=== PATIENT | female | born 1960 | race Caucasian/White ===

== ENCOUNTER 2023-09-25 08:07 | Outpatient (CLI) | payer BC, SELFPAY | END 2023-09-25 08:08 | disposition home or self-care (01) | LOC: NFLDREF 09-26 06:09 | PROVIDERS: PCP Nurse Practitioner Family; Referring Provider Nurse Practitioner Family; Visit Provider Physician Assistant | DX: E87.6 Hypokalemia (principal) | CPT/HCPCS: 80048 ==

== ENCOUNTER 2023-10-15 13:56 | Outpatient (CLI) | payer BC, SELFPAY | END 2023-10-15 13:57 | disposition home or self-care (01) | LOC: RAD 13:57 | PROVIDERS: PCP Family Medicine; Visit Provider Physician Assistant | DX: C50.912 Malignant neoplasm of unspecified site of left female breast (principal); I35.1 Nonrheumatic aortic (valve) insufficiency; I34.0 Nonrheumatic mitral (valve) insufficiency; I07.1 Rheumatic tricuspid insufficiency; Z51.81 Encounter for therapeutic drug level monitoring; Z79.899 Other long term (current) drug therapy | CPT/HCPCS: 93306 ==

== ENCOUNTER 2023-10-18 08:05 | Outpatient (CLI) | payer BC, SELFPAY | END 2023-10-18 08:06 | disposition home or self-care (01) | LOC: NFLDREF 10-19 06:58 | PROVIDERS: PCP Family Medicine; Referring Provider Family Medicine; Visit Provider Physician Assistant | DX: E87.6 Hypokalemia (principal); D64.81 Anemia due to antineoplastic chemotherapy; T45.1X5A Adverse effect of antineoplastic and immunosuppressive drugs, initial encounter | CPT/HCPCS: 80048; 85018 ==

== ENCOUNTER 2023-12-11 06:43 | Day surgery (SDC) | payer BC, SELFPAY ==
[2023-12-11] VITALS (22 sets, daily range): BP systolic 91–108; BP diastolic 56–87; PULSE 77–94; RESP 14–20; TEMP 36.2–36.9; O2SAT 92–97; BMI 25.4
--- OUTSIDE RECORDS SUMMARY | 2023-12-11 06:47 | XMS_ITS | Clinical Summary ---
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 Healthcare Directive 07/19/2023 024 * Full Code (Latest Code Status on File) Date Activated Date Inactivated Comments 07/26/2023 12:14 PM 07/26/2023 6:01 PM Question Answer Comments Code Status Discussion: Reviewed Preferences * Full Code Date Activated Date Inactivated Comments 07/17/2023 12:26 PM 07/17/2023 7:05 PM Question Answer Comments Code Status Discussion: Reviewed Preferences * Full Code Date Activated Date Inactivated Comments 06/06/2018 8:20 AM 06/06/2018 4:00 PM Question Answer Comments Code Status Discussion: Not Discussed Care Teams Metal Cans Supervisor Relationship Specialty Start Date End Date Milena Powell NP [address] [facility] [place] [address] PCP - General Nurse Practitioner - Family 01/29/23 Iliana Dunaway RN [address] [place] [address] Nurse Navigator - Oncology Registered Nurse 06/18/23 Senait Tilley, MAKENNA [address] [facility] [address] [place] [address] Nurse Navigator - Oncology Registered Nurse 06/20/23 Arina Haley MD [address] [address] Surgery - General 06/20/23 Kalli Brandon NP [address] [place] [address] Nurse Practitioner Hematology and Oncology 07/10/23 Sowmya Etienne MD [address] [place] [address] Medical Oncologist Hematology and Oncology 07/10/23
[2023-12-11] MEDS: LACTATED RINGERS 1000 ML 1,000 ML 100 ML IV ×3 (07:15→14:30)
[2023-12-11] MEDS: SODIUM CHLORIDE 0.9 % (FLUSH) 10 ML SYRINGE IVF (07:15)
--- NOTE | 2023-12-11 08:00 | CRLHL7_ITS ---
For Patients: As a result of the Century Cures Act, medical imaging exams and procedure reports are released immediately into your electronic medical record. You may view this report before your referring provider. If you have questions, please contact your health care provider. SENTINEL LYMPH NODE LOCALIZATION INJECTION CLINICAL HISTORY: Breast cancer LATERALITY: Right breast TECHNIQUE: With the patient supine, the periareolar right breast was cleansed with alcohol. One cc of 1% lidocaine was injected intradermal in the upper outer periareolar region of the right breast with a 25-gauge needle. Next, 0.80 millicuries of technetium Tc 99m filtered sulfur colloid in a volume of 1 cc was injected intradermal in the upper outer periareolar breast with a 25-gauge needle. The patient tolerated the procedure well and there were no immediate complications. IMPRESSION: Injection for sentinel lymph node of the right breast. Dictated by Cl Davey MD @ 12/12/2023 4:30:18 PM (Electronically Signed)
--- NOTE | 2023-12-11 08:14 | W.ANESCHARGE ---
Anesthesia Charges Start Date/Time Anesthesia Start Date: 12/11/23 Anesthesia Start Time: 09:22 Stop Date/Time Anesthesia Stop Date: 12/11/23 Anesthesia Stop Time: 13:23
--- NOTE | 2023-12-11 08:14 | W.PM.NB ---
Nerve Block Nerve Block Time Seen by Provider: 09:32 Date Seen: 12/11/23 Type of block requested by surgeon for post-operative analgesia: intercostal and intercostal add on Side: bilateral Time out performed: Yes Verification of patient name: Yes Verification of date of : Yes Site marking: site marked Name of person performing procedure: Valentin Continuous monitoring Was continuous monitoring of O2 sat, B/P, property assessment monitor, recorded every 15 minutes?: Yes Procedure Checklist: sterile prep, needles and gloves Ultrasound guided. Images saved: Yes Medications given in 5ml increments after negative aspiration: Marcaine %: 0.25 mL: 30 Needle gauge: 20 and Exparel mL: 20 Needle gauge: 20 Patient tolerated procedure well: Yes Block Charges Block Charge (with Pro Fee): Intercostal Nerve Block Use of Ultrasound Machine for Block: Yes- US Guidance/pain block
--- NOTE | 2023-12-11 08:15 | CRLHL7_ITS ---
For Patients: As a result of the Cures Act, medical imaging exams and procedure reports are released immediately into your electronic medical record. You may view this report before your referring provider. If you have questions, please contact your health care provider. 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 TECHNIQUE: The localization wire was placed using real-time ultrasound guidance with image documentation. CONSENT and TIME OUT: The procedure, risks, and alternatives were explained to the patient and a consent was signed. [place] Protocol was followed including pre-procedure verification that relevant information/documentation was available, reviewed and properly matched to the patient; consent accurate and complete; and equipment and supplies available. Time Out was conducted just prior to starting procedure to verify the four required elements: patient identity, correct side/site marked (if applicable), procedure, relevant images/results properly labeled and displayed (if applicable). PROCEDURE: The skin was prepped with ChloraPrep. 6 cc of 1 percent lidocaine used for local anesthesia. The localization wire was placed within or near the targeted right axillary lymph node lesion using ultrasound guidance. The patient tolerated the procedure well. PROXIMITY OF WIRE TO LESION: The wire is located within the previously biopsied lymph node immediately adjacent to the biopsy clip. IMPRESSION: Successful right axillary lymph node wire localization. ACR not applicable Dictated by Cl Davey MD @ 12/11/2023 11:21:14 AM (Electronically Signed)
--- NOTE | 2023-12-11 09:19 | W.PM.H&PU ---
History & Physical Update History & Physical Update H&P Reviewed and patient assessed: No changes noted
[2023-12-11] MEDS: ISOSULFAN BLUE 5 ML VIAL INJECTION (09:36)
[2023-12-11] MEDS: CEFAZOLIN 2 GM INJ IVP (09:38)
--- NOTE | 2023-12-11 10:49 | CRLHL7_ITS ---
For Patients: As a result of the Cures Act, medical imaging exams and procedure reports are released immediately into your electronic medical record. You may view this report before your referring provider. If you have questions, please contact your health care provider. RIGHT BREAST SPECIMEN RADIOGRAPH CLINICAL HISTORY: RIGHT breast cancer. COMPARISON: 06/13/2023. FINDINGS: RIGHT breast specimen submitted, two views. The entire breast was included from mastectomy. Biopsy clip is present. IMPRESSION: Biopsy clip is present within the mastectomy specimen. ACR not applicable Dictated by Cl Davey MD @ 12/11/2023 11:18:07 AM jj/Dictated by: Cl Davey MD @ 12/11/2023 11:18:00 AM (Electronically Signed)
--- NOTE | 2023-12-11 11:20 | CRLHL7_ITS ---
For Patients: As a result of the Cures Act, medical imaging exams and procedure reports are released immediately into your electronic medical record. You may view this report before your referring provider. If you have questions, please contact your health care provider. RIGHT AXILLARY SPECIMEN RADIOGRAPH CLINICAL HISTORY: RIGHT axillary lymph node dissection. COMPARISON: 06/13/2023. FINDINGS: Two views of the RIGHT axillary lymph node specimen submitted. Multiple lymph nodes are present in the specimen. IMPRESSION: Multiple RIGHT axillary lymph nodes are present within the specimen. ACR not applicable Dictated by Cl Davey MD @ 12/11/2023 12:43:57 PM jj/Dictated by: Cl Davey MD @ 12/11/2023 12:43:00 PM (Electronically Signed)
--- NOTE | 2023-12-11 12:01 | CRLHL7_ITS ---
For Patients: As a result of the Cures Act, medical imaging exams and procedure reports are released immediately into your electronic medical record. You may view this report before your referring provider. If you have questions, please contact your health care provider. RIGHT AXILLARY SPECIMEN RADIOGRAPH CLINICAL HISTORY: Previously biopsied RIGHT axillary lymph node, RIGHT axillary dissection. COMPARISON: 06/13/2023. FINDINGS: Two views of the RIGHT axillary lymph node specimen submitted. The specimen contains the previously biopsy lymph node along with a biopsy clip and localization wire. IMPRESSION: Previously biopsied lymph node in the specimen is present along with the biopsy clip and localization wire. ACR not applicable Dictated by Cl Davey MD @ 12/11/2023 12:47:00 PM jj/Dictated by: Cl Davey MD @ 12/11/2023 12:47:00 PM (Electronically Signed)
--- NOTE | 2023-12-11 12:02 | CRLHL7_ITS ---
For Patients: As a result of the Cures Act, medical imaging exams and procedure reports are released immediately into your electronic medical record. You may view this report before your referring provider. If you have questions, please contact your health care provider. RIGHT AXILLARY SPECIMEN RADIOGRAPH CLINICAL HISTORY: RIGHT axillary lymph node dissection, RIGHT breast cancer. COMPARISON: 06/13/2023. FINDINGS: Two views of the RIGHT axillary lymph node specimens submitted. Multiple RIGHT axillary lymph nodes are present. IMPRESSION: Right RIGHT lymph nodes are present within the RIGHT axillary specimen. ACR not applicable Dictated by Cl Davey MD @ 12/11/2023 12:45:29 PM jj/Dictated by: Cl Davey MD @ 12/11/2023 12:45:00 PM (Electronically Signed)
--- NOTE | 2023-12-11 12:57 | P.GSOP_ITS ---
Operative Note Date of procedure: 12/11/23 Pre-op diagnosis: Invasive ductal carcinoma, right breast Post-op diagnosis: Same Type of Procedure: 1. Injection of radionucleotide tracer 2. Bilateral mastectomy 3. Right axillary sentinel lymph node 4. Wire localized right axillary lymph node removal Indications: Patient is a 62-year-old female who was diagnosed with invasive ductal carcinoma. Evidence on workup of stage III disease with metastases to the right axillary lymph nodes. She underwent neoadjuvant treatment, with evidence of t umor regression. Different treatment options were discussed, with patient deciding to pursue bilateral mastectomy and targeted right axillary lymph node dissection. We also reviewed the possible need for a complete axillary dissection in the setting of persistently positive lymph nodes. Risks and benefits were reviewed. Risks included, for not limited to: Bleeding, infection, risk to surrounding structures, risk of seroma, hematoma or lymphatic leak, risk to nerves of the axilla and lymphedema. All questions and concerns were addressed with patient agreeing to proceed. Procedure Description: Prior to going to the operating room a radionucleotide tracer was placed within a subdermal plane at the nipple-areolar complex. She then went to Radiology, where the previously biopsied right axillary lymph node was identified and localized with a wire. Please see radiology note for full procedure. The patient was brought to the operating room and prepped and draped in standard sterile fashion. A timeout was taken for patient safety. I injected 3 cc of lymphazurin blue in the patient's right breast. I then performed breast massage for a period of 5 minutes. I performed a transverse elliptical incision on the right breast around the nipple-areolar complex and started by dissecting the subcutaneous tissues using electrocautery. The breast flaps were created circumferentially, dissecting all the breast tissue off of the overlying skin superiorly up to the clavicle, medially to the lateral border of the sternum, laterally out to the latissimus and inferiorly to the inferior aspect of the breast fold. Once flaps had been raised in all 4 directions down to the level of the fascia, the breast was taken off of the chest wall. I included the fascia in my dissection. The underlying pectoralis muscle was inspected and hemostasis was appreciated. The breast was removed through the incision and marked with a short stitch superior and a long stitch lateral. It was sent to Radiology, with evidence of a clip within the specimen correlating to the biopsied cancer. It was then sent to pathology for immediate assessment, with no residual tumor identified. Margins negative. I then proceeded to take out the sentinel lymph nodes through the mastectomy incision. Using the Neoprobe I identified two sentinel lymph nodes. The nodes were carefully dissected out with blunt dissection and cautery. The lymphovascular pedicle was identified and tied with 3-0 Vicryl. The counts on the nodes were 2036. This was sent as one specimen, sentinel lymph node 1 for immediate evaluation by pathology. Some fibrotic changes were noted, but no evidence of metastatic disease. The Neoprobe was placed back into the axilla and a 3rd sentinel node was identified. This was carefully dissected out with blunt dissection and cautery. The counts were 634. This was sent to pathology for frozen evaluation, with no evidence of malignancy. The wire in the right axilla was identified and targeted towards lymphatic tissue that had not yet been removed. This was dissected out carefully with cautery. The wire went through a moderately sized lymph node. This was circumferentially dissected free. The lymphovascular pedicle was identified and ligated with 3 0 Vicryl. The specimen was removed along with the wire and sent to Radiology. Evidence on imaging of the wire and lymph node clip. This was sent to pathology for immediate evaluation with no evidence of metastatic disease, fibrotic changes present. At the conclusion of the targeted axillary dissection background counts in the axilla remained low with no further hot or blue nodes identified. I then proceeded to perform contralateral prophylactic mastectomy in the same fashion. I made a transverse elliptical incision around the nipple-areolar complex and started by dissecting the subcutaneous tissues using electrocautery. The breast flaps were created circumferentially, dissecting all the breast tissue off of the overlying skin superiorly up to the clavicle, medially to the lateral border of the sternum, laterally out to the latissimus and inferiorly to the inferior aspect of the breast fold. Once flaps had been raised in all 4 directions down to the level of the fascia, the breast was taken off of the chest wall. I included the fascia in my dissection. The breast was removed through the incision and marked with a short stitch superior and a long stitch lateral. It was sent to pathology for permanent evaluation. Hemostasis was assured in both operative sahni. Two 15 Yi Jim drains were placed on both sides of the chest and secured to the skin with 3-0 nylon suture. The elliptical incisions were closed in layers with interrupted 3-0 Vicryl stitch and running 4-0 Monocryl subcuticular stitch. Steri-Strips, 4x4s and an Yordy wrap was applied. ? The patient was then woken and transported to the recovery area in stable condition. ? The patient tolerated the procedure well. Findings: Bilateral mastectomy. Right breast with no residual tumor identified in margins negative. Targeted axillary dissection with all nodes negative for metastatic disease. Anesthesia: GETA Surgeon: Cassidy Coleman MD Estimated blood loss (mL): 25 Additional Specimen Information: 1. Right breast 2. [place] lymph node 1, right axilla 3. [place] lymph node 2, right axilla 4. Wire localized sentinel lymph node, right axilla 5. Left breast Condition: stable Disposition: PACU [place] Node Biopsy for Breast Cancer Operation Performed with Curative Intent: Yes Tracers used to Identify sentinel nodes in the upfront surgery (non-neoadjuvant) setting: N/A Tracers used to identify sentinel nodes in the neoadjuvant setting: Dye, Radioactive Tracer and Clips & wire localization All nodes (colored or non-colored) present at the end of a dye filled lymphatic channel were removed: Yes All significantly radioactive nodes were removed: Yes All palpably suspicious nodes were removed: Yes Biopsy proven positive nodes marked with clips prior to chemotherapy were identified and removed: Yes
--- NOTE | 2023-12-11 13:29 | W.ANESCHARGE ---
Anesthesia Charges Start Date/Time Anesthesia Start Date: 12/11/23 Anesthesia Start Time: 09:22 Stop Date/Time Anesthesia Stop Date: 12/11/23 Anesthesia Stop Time: 13:23
[2023-12-11] MEDS: fentaNYL 100 MCG/2 ML inj 50 MCG IVP (13:37)
--- NOTE | 2023-12-11 14:01 | SUR.PHASEI ---
patient meets pacu d/c criteria
--- NOTE | 2023-12-11 14:26 | PC.SOCIAL ---
Discharge planning- Met with patient to discuss discharge plans. Patient informs that her friend that was going to assist her in the home during recovery is now on vacation. Patient is unsure at this time what assistance she requires. Patient is agreeable to see therapy services and following recommendations including SNF, home care, or outpatient services. Social work will follow up with patient tomorrow morning to check on patient's progress and further discuss discharge plans.
[2023-12-11] MEDS: HYDROmorphone 0.5 mg/0.5 ml inj IVP (14:27)
[2023-12-11] MEDS: HYDROCODONE-ACETAMIN 5-325 MG 1 TAB PO ×3 (14:27→23:05)
--- OUTSIDE RECORDS SUMMARY | 2023-12-11 14:54 | XMS_ITS | Clinical Summary ---
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 Malignant neoplasm of upper- outer quadrant of right breast in female, estrogen receptor negative 07/02/2023 Cancer Staging:Clinical:Stage IIIA(cT2, cN2, cM0, G3, ER-, RI-, HER2+) - Signed by Arina Haley MD [...] Description 11/18/2023 3:45 PM CDT Ancillary Procedure [facility] [address] [place] [address] 11/18/2023 3:00 PM CDT Office Visit [facility] [address] [place] [address] Irasema Snatiago, SUNI Lower Back Pain 11/18/2023 Travel 10/24/2023 Refill [facility] [address] [place] [address] Milena Powell NP Refill Request (Sertraline, Lisinopril-hydrochlo rothiazide 10 Mg-12.5 Mg) 10/15/2023 2:00 PM CDT Ancillary Procedure [facility] [address] [place] [address] from Last 3 Months Immunizations Name Administration [...] 170.2 cm (5' 7) 07/26/2023 6:58 AM BRAILLE DUPLICATING MACHINE OPERATOR Body Mass Index 24.75 07/26/2023 6:58 AM BRAILLE DUPLICATING MACHINE OPERATOR Plan of Treatment Health Maintenance Due Date [...] Completed 01/29/2023 Medical Devices Implanted Type Area Form Setter Steel Pan Forms Device Identifier Shelf Expiration Date Model / Serial / Lot Power Port Isp Mri 6fr [id number] - [id number] Implanted:Qty: 1 on 07/17/2023 by Doris Aguillon DO at [facility] Left: Chest [employer] 11/08/2024 [id number] / / [id number] Procedures Procedure Name Priority Date/Time Associated Diagnosis Comments XR SPINE LUMBAR 3 VIEWS STAT 11/18/2023 3:48 PM CDT Acute right-sided low back pain with right-sided sciatica ECHO TTE COMPLETE WO CONTRAST Routine 10/15/2023 2:35 PM CDT Malignant neoplasm (HC) XR MAMMO TY BILAT DIAG JORGE 06/13/2023 10:35 AM BRAILLE DUPLICATING MACHINE OPERATOR Lump in lower outer quadrant of right [...] CDT ECHOCARDIOGRAM SONDRA DIANA ? Accession#: ?? [id number] : ?1960 62 years Study Date: ?? 10/15/2023 2:11:40 PM Gender: F ?BP: ? 130/77 mmHg Height: 170.00 cm ?BSA: ?1.78 m? ? ? Weight: 67.00 kg ? Tech: ? MCK ? Referring MD: CHELSEA LEE Site: ? [facility] Reading Location: Mobile-OP Patient Location: Outpatient. [...] . This study was interpreted by an [facility] accredited facility. CC: HIM (med records) [facility]. ??Final ?? Procedure Note Janessa Valorie, [facility] - 10/15/2023 ECHOCARDIOGRAM SONDRA DIANA : 1960 62 years Study Date: 10/15/2023 2:11:40 PM Gender: F BP: 130/77 mmHg Height: 170.00 cm BSA: 1.78 m? ? ? Weight: 67.00 kg Tech: SHANDA Referring MD: CHELSEA LEE Site: [facility] Reading Location: Mobile-OP Patient Location: [...] interpreted by an [facility] accredited facility. CC: [facility] (med [facility]) [facility]. Final Chelsea Lee PA-C ECHO ORD * XR MAMMO TY BILAT DIAG (06/13/2023 10:35 AM BRAILLE DUPLICATING MACHINE OPERATOR) Anatomical Region Laterality Modality BREASTS, Breast Left, Breast Right Bilateral Mammography, Other 06/13/2023 12:3 4 PM BRAILLE DUPLICATING MACHINE OPERATOR Impressions 06/14/2023 7:26 AM BRAILLE DUPLICATING MACHINE OPERATOR 1. At the 9 o'clock position RIGHT [...] your referring provider. Narrative 06/14/2023 7:26 AM BRAILLE DUPLICATING MACHINE OPERATOR For Patients: As a result of the [...] x 2.1 x 1.8 cm. Milena Powell COSMETOLOGY PROFESSOR MAMMO * LC HCV ANTIBODY RFX TO QUANT PCR (01/29/2023 11:21 AM CDT) HCV Ab Non Reactive Non Reactive 02/01/2023 1:09 PM CDT [facility] Blood BLOOD SPECIMEN / Unknown Venipuncture / Unknown 01/29/2023 11:21 AM CDT 01/29/2023 11:24 AM CDT Narrative [facility] ESOTERIC TESTING (CET) - 02/01/2023 1:09 PM CDT Performed at: ??[address] ??[id number] Procedure Tech: Claude Farrar MD, Phone: ??[phone] Milena Powell NP LABORATORY [facility] ESOTERIC TESTING (CET) [address] [place] [address], * (ABNORMAL) LIPID PANEL W REFLEX MEASURED LDL (01/29/2023 11:21 AM CDT) CHOLESTEROL,TOTAL 303(H) 100 - 199 mg/dL 01/29/2023 11:56 AM [facility] TRIGLYCERIDES 145 <150 mg/dL 01/29/2023 11:56 AM [facility] HDL CHOLESTEROL 101 >40 mg/dL 11:56 AM [facility] NON-HDL CHOLESTEROL 202(H) <145 mg/dl 01/29/2023 11:56 AM [facility] CHOL/HDL RATIO 3.00 <4.50 01/29/2023 11:56 AM [facility] LDL CHOLESTEROL 173(H) <=130 mg/dL 01/29/2023 11:56 AM [facility] VLDL CHOLESTEROL 29 <=30 mg/dL 01/29/2023 11:56 AM [facility] PROVIDER ORDERED STATUS RANDOM 01/29/2023 11:56 AM [facility] Blood BLOOD SPECIMEN / Unknown Venipuncture / Unknown 01/29/2023 11:21 AM CDT 01/29/2023 11:24 AM CDT Milena Powell NP CHEMISTRY [facility] [address] [place] [address] * HIV-1 RNA QUANT (01/29/2023 11:21 AM CDT) HIV-1 RNA QUANT HIV-1 RNA not detected HIV-1 RNA not detected copies/mL 01/31/2023 1:45 PM CDT [facility] Blood BLOOD SPECIMEN / Unknown Venipuncture / Unknown 01/29/2023 11:21 AM CDT 01/29/2023 11:24 AM CDT Narrative [facility] - 01/31/2023 1:45 PM CDT Method: Sameer HIV-1 Test Milena Powell COSMETOLOGY PROFESSOR SEND OUTS Performing Organization Address [facility]/ZIP Co de Phone Number [facility] [address] * (ABNORMAL) HPV HIGH RISK (01/29/2023 10:10 AM CDT) TYPE 16 Negative Negative 02/01/2023 5:22 PM CDT [facility] TYPE 18 Negative Negative 02/01/2023 5:22 PM CDT [facility] TRA LAB[facility] OTHER HIGH RISK TYPES Positive(A) Negative 02/01/2023 5:22 PM CDT [facility] Other (Cervical) Non-Blood / Unknown 01/29/2023 10:10 AM CDT 01/30/2023 1:55 PM CDT Narrative [facility] - 02/01/2023 5:22 PM CDT Specimen is positive for the DNA of any one of, or combination of, the following high risk HPV types: 31, 33, 35, 39, 45, 51, 52, 56, 58, 59, 66, 68. HPV types 16 and 18 DNA were undetectable or below the pre-set threshold. ? Methodology: [facility] 4800 HPV Test Milena Powell COSMETOLOGY PROFESSOR MICROBIOLOGY [employer] [facility] 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 Healthcare Directive 07/19/2023 024 * [...] Code Status Discussion: Not Discussed Care Teams Senior Report Developer Relationship Specialty Start Date End Date Milena Powell NP [address] [place] [place] [address] PCP - General Nurse Practitioner - Family 01/29/23 Iliana Dunaway RN [address] [place] [address] Nurse Navigator - Oncology Registered Nurse 06/18/23 Senait Tilley, MAKENNA [address] [facility] [address] [place] [address] Nurse Navigator - Oncology Registered Nurse 06/20/23 Arina Haley MD [address] [address] Surgery - General 06/20/23 Kalli Brandon NP [address] [place] [address] Nurse Practitioner Hematology and Oncology 07/10/23 Sowmya Etienne MD [address] [place] [address] Medical Oncologist Hematology and Oncology 07/10/23
[2023-12-11] MEDS: ZOLPIDEM 5 MG TABLET 10 MG PO (23:11)
[2023-12-12 03:20] VITALS: BP 102/60; PULSE 90; RESP 18; TEMP 36.7; O2SAT 95
[2023-12-12] MEDS: HYDROCODONE-ACETAMIN 5-325 MG 1 TAB PO ×2 (03:30→08:54)
--- NOTE | 2023-12-12 07:44 | PC.NURSE ---
Pt ambulating independantly. Voiding without difficulty. Pain controlled with [place]. YANET's putting out minimal drainage.
[2023-12-12 07:51] VITALS: BP 111/75; PULSE 95; RESP 18; TEMP 37.1; O2SAT 97
[2023-12-12] MEDS: ACETAMINOPHEN 325 MG TABLET 650 MG PO (07:55)
[2023-12-12] MEDS: hydroCHLOROthiazide 12.5 MG CAPSULE PO (07:55)
[2023-12-12] MEDS: SERTRALINE 100 MG TABLET PO (07:56)
[2023-12-12 08:00] VITALS: RESP 16; O2SAT 97
--- NOTE | 2023-12-12 12:55 | PC.NURSE ---
The patient discharged home with a friend. Compression bra is on... Bilateral chest YANET drains w/ serosanguineous drainage. R has more drainage. The patient reports some burning in her chest/ moderate pain. Pain controlled with [place]. Complains of sciatica pain as well that is relieved with a heating pad and activity. All discharge information was given to the patient. The patient ambulated off the unit. Niru LEAVITTN
== END 2023-12-12 12:15 | disposition home or self-care (01) ==
LOC: MEDSURG 13:43 → OR 14:52 → MEDSURG 14:52
PROVIDERS: PCP Family Medicine; Visit Provider Surgery
PROC: (CPT 19307; principal; 2023-12-11 09:15)
PROC: (CPT 19307; 2023-12-11 09:15)
PROC: (CPT 19307; 2023-12-11 09:15)
DX: C50.911 Malignant neoplasm of unspecified site of right female breast (principal); C77.3 Secondary and unspecified malignant neoplasm of axilla and upper limb lymph nodes; G89.18 Other acute postprocedural pain
CPT/HCPCS: 19307; 01610; 10035; 38792; 64420; 64421; 76942; 77065; 88307; A9270; A9541; C1769; C9290; G0279; J0665; J0690; J1100; J1170; J1630; J2371; J2405; J2704; J2710; J3010; J3475; J7120

== ENCOUNTER 2024-01-14 11:15 | Outpatient (RCR) | payer BC, SELFPAY ==
--- NOTE | 2024-01-07 12:49 | PT.OPEX ---
PT [place] Outpatient Eval PT [facility] Outpatient Eval Start: 01/07/24 07:49 Freq: Status: Active Protocol: Document 01/07/24 07:49 ENM (Rec: 01/07/24 10:47 ENM [id number]) E-signed By Shannon Guzman, DPT Physical Therapy Outpatient Evaluation Insurance Information Recert Due Date 04/06/24 Insurance Name Medicaid,Blue Cross/Blue Shield Medical Diagnosis bilateral mastectomy with right LND 12/11/23 Treating Diagnosis right arm/ axillary pain, decreased shoulder ROM, fatigue Referring MD Coleman Subjective Preferred Name Lynne Subjective Patient presents to PT for evaluation after bilateral mastectomy with R LND for invasive ductal carcinoma ERPR - HER2+ (DOS 12/11/23). Four to five lymph nodes were taken out. She has undergone chemo in the last year and is on her second round now. Her last full chemo was the 31 of October . It was hard and had a lot of fatigue. She is not sure that she will have radiation the decision is up to her. Will have expanders put in on January 29 at [facility] with . Has had tightness on the right side but no difficulties on the left side. Had pains on the right arm but the gabapentin has helped. Daily activities are getting better but were challenging at first. She does live alone and has to do 30+ stairs to get to her place. 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 Patient tender to palpation along lateral arm Posture: increased cervical lordosis Observation/swelling: minimal Cording - Functional Test Performed & Score SPADI: pain 15/50 disability 80 27/130 Assessment Assessment/Impression Patient returns to PT for her 4 week post-operative evaluation after bilateral mastectomy with R LND. She does not have baseline measures for comparison. She is undergoing chemo and has declined radiation. She will have an plywood layup line core layer put in on January 29. Since surgery pains and motion has improved but continues to be sore at end range. She currently presents with decreased shoulder ROM and moderate tissue restrictions on her right side that will benefit from skilled care, including therapeutic exercise, manual therapy, neuromuscular education, self-care training and HEP training, in order to return her to her prior level of function and comfort. Primary Functional Limitations can perform all activities but has some discomfort Plan of Care Rehabilitation Potential Good Rehabilitation Potential Comments Progress may be slow due to multiple surgeries and hx of chemo Physical Therapy Goals In 4-6 weeks: 1. Restore shoulder AROM to WNL comparable to contralateral side, after initial recovery period to improve 1 and 2-handed functional activity ability. ( This will reduce during radiation therapy inflammatory phase, if needed.) 2. Restore functional scoring using SPADI assessment tool to pre-operative amounts to ensure full return to baseline function. 3. Restore full upright posture per patient perception or compared to pre-operative findings. Coordination/Communication With Referral Source Treatment Plan/Direct Interventions Ice/Cold/Vasopneumatic,Joint Mobilization,Manual Therapy, Neuromuscular Re-ed,Self-Care/ Home Management,Therapeutic Activities,Therapeutic Exercises Frequency/Duration 1-2x a week for 4-6 weeks Patient Will Be Discharged From Therapy Completion of LTG(s), Independent w/HEP Evaluation Billing Untimed Code Treatment Minutes 25 Complexity Low Certification Information Initial Certification Date 01/07/24 Ending Certification Date 04/06/24 Provider Signature Required Yes Provider Signature Shows Agreement With POC & Medical Necessity Physician NPI Number Write NPI# Here Physician Comment/Change : Physician Signature & Date Requested Please Sign/Date Here
--- NOTE | 2024-01-08 18:28 | OT.OPLE2 ---
OT Outpatient Lymphedema Eval* OT Outpatient Lymphedema Eval* Start: 11/28/23 08:03 Freq: Status: Active Protocol: Document 01/08/24 13:31 AMB (Rec: 01/07/24 13:57 AMB [id number]) E-signed By Kavitha Cole, OTR/L, CLT, DIRECTOR MACHINE OT Outpatient Evaluation Details Type Type Eval Complexity Low Insurance Information Insurance Information Insurance Information Blue Cross/Blue Shield Other Insurance Medicaid Insurance Information Comments Cert due on 04/07/24 OT OP Lymphedema Evaluation Current Condition/Medical Diagnosis Referring Provider Dr Jomar Coleman Medical Diagnoses Breast Cancer in the right breast Treatment Diagnosis I89.0 Pt is at risk for lymphedema I97.2 Post Mastectomy Syndrome Date Of Onset 12/11/23 (date of mastectomy with SLNB) Medical Contraindications CA Medical History Medical History Cancer Treatment/Surgery, Depression,HTN,Radiation, Smoking,Chemo Medical History Comments Oncology Hx (copied from oncology chart): 1. 05/15/2023 presented to urgent care with 10 days of palpable right breast mass, treated for mastitis with antibiotics. 2. 06/12/2023 presented to primary care as the breast mass had not resolved or improved 3. Diagnostic mammogram/ ultrasound 06/13/2023 irregular hypoechoic mass upper outer quadrant of the right breast measuring 3.6 x 2.1 x 1.8 cm, 9 o'clock position. 4. 06/13/2023 ultrasound-guided core needle biopsy grade 3 invasive ductal carcinoma, ERPR negative, HER2 positive 3 + by IHC, angiolymphatic invasion present. 5. MRI breast 7 x 7 cm mass upper outer quadrant right breast with 2 abnormal enlarged right axillary lymph nodes largest measuring 2.5 x 1.7 cm. No abnormalities noted in the left breast or left axilla 6. 06/28/2023 PET scan biopsy- proven FDG avid right breast mass SUV 29.1, multiple FDG avid right axillary lymph nodes. No evidence of metastatic disease. 7. 07/09/2023 ultrasound-guided right axillary lymph node biopsy metastatic carcinoma negative for evidence of NERY. Markers consistent with breast primary, ER SD negative , HER2 positive 3+ by IHC - Clinical stage IIIA. [id number] . Gr3. ERPR-. HER2+ (3+ by IHC ). 8. 07/10/2023 medical oncology consultation [facility], recommendation for neoadjuvant therapy with TCHP with Neulasta support. 9. 07/19/2023 Cycle 1 TCHP complicated by diarrhea, fever , hypokalemia requiring emergency department care. CT abdomen and pelvis consistent with diffuse colitis. Patient left ER AMA with no specific intervention. Resolution of symptoms within 48 hours. No recurrence of fever. 10. 08/09/2023 Patient opted to transfer care to [place] and received cycle 2 TCHP with Taxotere at 20% dose reduction; 11. Six cycles TCHP completed 11/01/2023 12. GENETICS: - Family history significant for breast cancer in her sister at the age of 50, bladder cancer in another sister at the age of 61. Maternal aunt with colon/liver . Paternal grandmother with possible neck cancer. Paternal 1st cousin with breast cancer. Paternal aunt with breast cancer unknown age . No family history of ovarian, prostate or pancreatic cancer. 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 13. Bilateral mastectomies 12/10 - RIGHT: No residual invasive carcinoma. Scattered foci of gr3 DCIS spanning approx 2.5cm . Also atypical lobular hyperplasia ALH present. No residual disease in lymph nodes. [id number] - LEFT: LCIS present. No DCIS or invasive disease. - Reconstruction planned Other Medical Hx (copied from oncology chart): Primary hypertension I10 - Essential (primary) hypertension (ICD-10) History of abnormal cervical Pap smear Z87.42 - Personal history of other diseases of the female genital tract (ICD-10) Bilateral bunions M21.611 - Bunion of right foot (ICD-10) M21.612 - Bunion of left foot (ICD-10) Sensorineural hearing loss ( SNHL) of both ears H90.3 - Sensorineural hearing loss, bilateral (ICD-10) CHEK2 gene mutation positive Z15.89 - Genetic susceptibility to other disease (ICD-10) Osteopenia M85.80 - Other specified disorders of bone density and structure, unspecified site ( ICD-10) Anxiety F41.9 - Anxiety disorder, unspecified (ICD-10) Major depressive disorder F32.9 - Major depressive disorder, single episode, unspecified (ICD-10) Tobacco dependence due to cigarettes F17.210 - Nicotine dependence, cigarettes, uncomplicated ( ICD-10) Insomnia G47.00 - Insomnia, unspecified (ICD-10) Chronic pain syndrome G89.4 - Chronic pain syndrome (ICD-10) Cancer of right breast, stage 3 (06/2023) C50.911 - Malignant neoplasm of unspecified site of right female breast (ICD-10) Surgical History Surgical History (Copied from medical chart): History of tubal ligation Z98.51 - Tubal ligation status (ICD-10) History of third molar tooth extraction (1999) K08.409 - Partial loss of teeth, unspecified cause, unspecified class (ICD-10) History of hand surgery (03/22) Z98.890 - Other specified postprocedural states (ICD-10) History of excision of mass ( 08/15/17) Z98.890 - Other specified postprocedural states (ICD-10) Hx of LASIK Z98.890 - Other specified postprocedural states (ICD-10) Medications Medications (copied from oncology chart) acetaminophen 650 mg PO Q4H PRN lidocaine-prilocaine 2.5-2.5 % 5 grams topical PRECHEM PRN lisinopril-hydrochlorothiazide 10-12.5 mg 1 tab PO DAILY lorazepam 0.5 mg PO BID PRN multivitamin 1 tab PO QAM sertraline 100 mg PO DAILY varenicline (Chantix Continuing Month Box) 1 mg PO BID zolpidem 10 mg PO HS Family History Family History of Lymphedema No 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 Subjective Subjective Pt will have expanders placed on 01/30/24, pt has decided against radiation. Living Situation Current Living Situation Private Home/Apartment (Alone) Current Living Situation Comments 30 steps to get to her dwelling. Problem List Problem List Limited Knowledge of Lymphedema Treatment/Condition /Precautions,Limited Knowledge of Skin Care & Infection Precautions,Significant Risk For Infection For Lymphedema Related Complications,Does Not Have a HEP Exercise History Does Patient Exercise Regularly Yes Exercise Comments Pt stats that prior to her breast cancer, she did exercise quite regularly. 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 Pain Pain Yes Pain Comments Pt reports having pain deep in her axilla, states it's not constant, but comes and goes . ROM/Strength ROM/Strength Comments Pt is working with PT to address general conditioning, strength and ROM Compression History Does Patient Currently Wear Compression No During Daytime Current Swelling (Location/Pitting/Texture) Pitting Scale: 0 = No pitting 1+ Tissue returns to normal almost immediately 2+ Tissue returns after 15-30 seconds 3+ Tissue returns after 1-1/2 minutes 4+ Tissue returns after 2-3 minutes N/A Tissue no longer pits due to induration Tissue texture: Soft or indurated Clinical Presentation Area R upper quadrant Triggering Event & Start Date of Mastectomy on 12/11/[address] Swelling/Lymphedema removal x 5 (right breast), putting pt at risk for the development of lymphedema in her right upper quadrant. Skin Changes Comments Surgical incisions are healing very nicely, pt has expected swelling in her chest, normal for this stage of healing. Pt has developed mild axillary cording which could likely be the source of the pain in her axilla. PT is aware and will address. Circumferential Measurements Upper Extremity Left Upper Extremity MCP (in cm) 17.6 Palm (in cm) 18.2 Smallest Wrist Measurement (in cm) 15.7 10 cm Above Smallest Wrist Measurement 19.0 20 cm Above Smallest Wrist Measurement 23.3 30 cm Above Smallest Wrist Measurement 26.0 40 cm Above Smallest Wrist Measurement 30.0 50 cm Above Smallest Wrist Measurement 34.4 Total Girth in cm 184.2 UE Volume C 240.26 UE Volume D 357.19 UE Volume E 484.01 UE Volume F 624.94 UE Volume G 826.37 Upper Extremity Volume Total in cm 2,532.77 Right Upper Extremity MCP (in cm) 18.4 Palm (in cm) 18.5 Smallest Wrist Measurement (in cm) 15.6 10 cm Above Smallest Wrist Measurement 19.0 20 cm Above Smallest Wrist Measurement 23.2 30 cm Above Smallest Wrist Measurement 25.9 40 cm Above Smallest Wrist Measurement 30.1 50 cm Above Smallest Wrist Measurement 34.5 Total Girth in cm 185.2 UE Volume C 238.93 UE Volume D 355.45 UE Volume E 480.09 UE Volume F 625.05 UE Volume G 831.50 Upper Extremity Volume Total in cm 2,531.02 Assessment Assessment Pt is a very pleasant 63yo female referred to OT for initiation of the lymphedema surveillance program. Following her 12/11/23 bilateral mastectomy with SLN biopsy, pt is at risk for lymphedema in her RUE / upper quadrant due to LN removal. Pt will benefit from skilled OT intervention for pt education, monitoring / surveillance in order to provide early detection / intervention to assure best positive outcomes with fewer lymphedema related complications if the need arises. Pt demonstrates good interest and motivation to be an active participant in her care. Pt asked multiple pertinent questions and received satisfactory answers. Pt was given contact info and encouraged to reach out if more questions arise. Pt has no current s/s of lymphedema, however, she has developed some mild axillary cording in her right axilla and has complaints of pain in this area. Pt is following PT, who is aware of this and will address. Patient Goals Patient Goals 1. Pt will demonstrate a general understanding of the lymphatic system, s/s of lymphedema, treatment of lymphedema, implications of untreated lymphedema, s/s of infection and the correlation of infection related to lymphedema. 3 months 2. Pt will be compliant with quarterly assessments for lymphedema surveillance in order to obtain early intervention with best outcomes if needed. 12 months Treatment Plan Treatment Plan Evaluation,Edema Control, Manual Therapy,Wound Care/Scar Management,Therapeutic Exercise,Therapeutic Activities,Self-Care/Home Management,Education Other Treatment Plan 1 visit every 3 months or prn if lymphedema sx develop. Expected Duration 12 months Certification Certification Statement I Certify That: Therapy Services Provided, Therapy Plan Established, Therapy Plan Reviewed Certification Information Clinic ID # [id number] Initial Certification Date 01/08/24 Recertification Due Date 04/07/24 Provider Signature Required Yes Provider Signature Shows Agreement With POC & Medical Necessity Physician NPI Number Write NPI# Here Physician Comment/Change Comment or Changes Physician Signature & Date Requested Please Sign/Date Here
== END 2024-05-13 23:59 | disposition home or self-care (01) ==
PROVIDERS: PCP Family Medicine; Visit Provider Surgery
DX: C50.911 Malignant neoplasm of unspecified site of right female breast (principal); I97.2 Postmastectomy lymphedema syndrome; Z51.89 Encounter for other specified aftercare
CPT/HCPCS: 97110; 97140; 97161; 97165

== ENCOUNTER 2024-01-21 09:00 | Outpatient (RCR) | payer BC, SELFPAY ==
--- NOTE | 2023-08-02 16:45 | ONC.NURNOTE ---
Patient had shared that she is needing transportation assistance to and from appointments. I reviewed with our SW and I left a message providing patient with the following information: Patient has [employer] transportation benefits through her [employer]. She can call to schedule free transportation for medical appointments to [facility] at [phone].
--- NOTE | 2023-08-03 11:12 | ONC.NURNOTE ---
Breast Care Coordination - Genetic Counseling Pt LM saying she had missed her Genetic Counseling phone call in the past weeks d/t being ill and would like to connect with them. Painter called [facility] [phone] requesting they reach out to patient; they confirmed they will. Also updated pt with phone number for Genetics to call if she has not heard from them. Pt verbalizes understanding; has no further questions at this time.
--- NOTE | 2023-08-06 13:33 | URNOTE ---
Received request for prior authorization for the following: Docetaxel (J9171), Carboplatin (J9045),Trastuzumab-dkst (Q5114), Pertuzumab (J9306), Pegfilgrastin (J2506), Fosaprepitant (J1453), Palonosetron (J2469). Prior Authorization is not required- Per [facility], Ref# [id number]
[2023-08-09 09:03] VITALS: BP 144/82; PULSE 81; RESP 16; TEMP 36.1; O2SAT 99
[2023-08-09 09:23] LABS: Basophils Absolute Auto 0.04 K/uL (0.00-0.30); Basophils Percent Auto 0.4 % (0.0-3.0); Eosinophils Absolute Auto 0.02 K/uL (0.00-0.50); Eosinophils Percent Auto 0.2 % (0.0-7.0); Hematocrit 33.7 % (33.0-51.0); Hemoglobin* 11.5 gm/dL (12.0-16.0); Immature Granulocytes Abs Auto 0.02 K/uL (0.00-0.30); Immature Granulocytes Pct Auto 0.2 %; Lymphocytes Percent Auto 7.3 % (20-44); Mean Corpuscular HGB Conc 34 gm/dL (32-36); Mean Corpuscular Hemoglobin 35 pg (26-34); Mean Corpuscular Volume 101 fL (80-100); Monocytes Percent Auto 3.6 % (0.0-11.0); Neutrophils Percent Auto 88.3 % (42.0-72.0); Platelet Count* 501 K/uL (140-440); RDW Coefficient of Variation % 12.7 % (11.5-15.5); Red Blood Count 3.33 m/uL (4.00-5.20); White Blood Count* 9.47 K/uL (4.50-11.00)
[2023-08-09 09:24] LABS: Slide Review Reflex No
--- NOTE | 2023-08-09 09:30 | ONC.NURNOTE ---
I met with the patient in the infusion room. We discussed the contents of the chemotherapy binder, reviewed her antiemetic plan, discussed how to use Imodium if she develops diarrhea and discussed how to contact us during office hours and after hours. I provided patient with application for [facility] as requested. Patient confirms that she completed her genetic counseling appointment on 08/07 and will have her blood draw next week. Patient encouraged to call [facility] with questions or concerns.
[2023-08-09 09:35] LABS: Albumin* 4.5 g/dL (3.3-5.0)
[2023-08-09 09:36] LABS: Chloride* 99 mmol/L (96-114); Potassium* 3.7 mmol/L (3.6-5.1); Sodium* 130 mmol/L (135-149)
[2023-08-09 09:38] LABS: Bilirubin Total* 0.2 mg/dL (0.1-1.5); Creatinine* 0.6 mg/dL (0.5-1.5); Estimated Glomerular Filt Rate 101 ml/min
[2023-08-09 09:39] LABS: Alanine Aminotransferase* 30 U/L (4-35); Alkaline Phosphatase* 84 U/L (40-150); Anion Gap 9 mEq/L (7-15); Aspartate Amino Transferase* 27 U/L (12-35); Blood Urea Nitrogen* 32 mg/dL (7-30); Calcium* 9.5 mg/dL (8.4-10.6); Carbon Dioxide* 22 mmol/L (20-32); Glucose* 119 mg/dL (60-115); Total Protein* 7.4 g/dL (6.0-8.3)
[2023-08-09] MEDS: PERTUZUMAB 420 MG, TUBING SECONDARY 1 EACH in 0.9 % SODIUM CHLORIDE 250 ml 250 ML 528 MG IVPB (10:37)
[2023-08-09] MEDS: 0.9 % SODIUM CHLORIDE 250 ml IV (11:00)
[2023-08-09] MEDS: SODIUM CHLORIDE 0.9 % (FLUSH) 10 ML SYRINGE IVF ×2 (11:00→14:05)
[2023-08-09] MEDS: FOSAPREPITANT 150 MG inj 150 MG in 0.9 % SODIUM CHLORIDE 250 ml 250 ML 780 MG IVPB (12:00)
[2023-08-09] MEDS: PALONOSETRON 0.25 MG/5 ML inj IV (12:01)
[2023-08-09] MEDS: HEPARIN 500 UNIT/5 ML SYRINGE IVF (14:05)
--- NOTE | 2023-08-10 08:54 | ONC.NURNOTE ---
Call to patient to see how she is doing post cycle 2 TCHP. Patient states she is feeling great. She slept well, has good energy and denies any side effects. Patient has no questions or concerns. [facility] will check in with patient again on Sunday.
--- NOTE | 2023-08-13 08:25 | ONC.NURNOTE ---
Call to patient to see how she is tolerating cycle 2. Patient states she was exhausted over the weekend but feels a bit better this morning. She reports eating and drinking okay but everything tastes horrible. She is supplementing with Ensure. She denies nausea or diarrhea. Patient denies questions or concerns.
--- NOTE | 2023-08-17 13:35 | ONC.NURNOTE ---
Pt LM today following up a call from N yesterday checking in. She notes that she had 4 loose stools on Sun and began her imodium. She noted some nausea, saying she left early from work. She describes feeling better than with the previous chemo cycle.
[2023-08-30 09:16] LABS: Basophils Absolute Auto 0.01 K/uL (0.00-0.30); Basophils Percent Auto 0.1 % (0.0-3.0); Eosinophils Absolute Auto 0.01 K/uL (0.00-0.50); Eosinophils Percent Auto 0.1 % (0.0-7.0); Hematocrit 29.7 % (33.0-51.0); Hemoglobin* 10.2 gm/dL (12.0-16.0); Immature Granulocytes Abs Auto 0.03 K/uL (0.00-0.30); Immature Granulocytes Pct Auto 0.3 %; Mean Corpuscular HGB Conc 34 gm/dL (32-36); Mean Corpuscular Hemoglobin 35 pg (26-34); Mean Corpuscular Volume 101 fL (80-100); Monocytes Percent Auto 4.7 % (0.0-11.0); Neutrophils Percent Auto 86.8 % (42.0-72.0); Platelet Count* 329 K/uL (140-440); RDW Coefficient of Variation % 13.4 % (11.5-15.5); Red Blood Count 2.93 m/uL (4.00-5.20); White Blood Count* 10.82 K/uL (4.50-11.00)
[2023-08-30 09:20] LABS: Slide Review Reflex No
[2023-08-30 09:29] LABS: Albumin* 4.7 g/dL (3.3-5.0); Chloride* 103 mmol/L (96-114); Potassium* 3.8 mmol/L (3.6-5.1); Sodium* 135 mmol/L (135-149)
[2023-08-30 09:31] LABS: Anion Gap 9 mEq/L (7-15); Aspartate Amino Transferase* 29 U/L (12-35); Bilirubin Total* 0.4 mg/dL (0.1-1.5); Blood Urea Nitrogen* 28 mg/dL (7-30); Carbon Dioxide* 23 mmol/L (20-32); Creatinine* 0.6 mg/dL (0.5-1.5); Estimated Glomerular Filt Rate 101 ml/min
[2023-08-30 09:32] LABS: Alanine Aminotransferase* 31 U/L (4-35); Alkaline Phosphatase* 81 U/L (40-150); Calcium* 10.1 mg/dL (8.4-10.6); Glucose* 127 mg/dL (60-115)
[2023-08-30 09:49] LABS: Total Protein* 7.7 g/dL (6.0-8.3)
[2023-08-30] MEDS: SODIUM CHLORIDE 0.9 % (FLUSH) 10 ML SYRINGE IVF ×2 (10:36→14:32)
[2023-08-30] MEDS: 0.9 % SODIUM CHLORIDE 250 ml IV (10:36)
[2023-08-30] MEDS: PERTUZUMAB 420 MG, TUBING SECONDARY 1 EACH in 0.9 % SODIUM CHLORIDE 250 ml 250 ML 528 MG IVPB (11:00)
[2023-08-30] MEDS: FOSAPREPITANT 150 MG inj 150 MG in 0.9 % SODIUM CHLORIDE 250 ml 250 ML 780 MG IVPB (12:15)
[2023-08-30] MEDS: PALONOSETRON 0.25 MG/5 ML inj IV (12:15)
[2023-08-30] MEDS: HEPARIN 500 UNIT/5 ML SYRINGE IVF (14:32)
[2023-09-20 09:39] LABS: Basophils Absolute Auto 0.02 K/uL (0.00-0.30); Basophils Percent Auto 0.3 % (0.0-3.0); Eosinophils Absolute Auto 0.02 K/uL (0.00-0.50); Eosinophils Percent Auto 0.3 % (0.0-7.0); Hematocrit 27.4 % (33.0-51.0); Hemoglobin* 9.4 gm/dL (12.0-16.0); Immature Granulocytes Abs Auto 0.03 K/uL (0.00-0.30); Immature Granulocytes Pct Auto 0.4 %; Lymphocytes Percent Auto 11.9 % (20-44); Mean Corpuscular HGB Conc 34 gm/dL (32-36); Mean Corpuscular Hemoglobin 36 pg (26-34); Mean Corpuscular Volume 104 fL (80-100); Monocytes Percent Auto 10.3 % (0.0-11.0); Neutrophils Percent Auto 76.8 % (42.0-72.0); Platelet Count* 257 K/uL (140-440); Red Blood Count 2.63 m/uL (4.00-5.20)
[2023-09-20 09:45] LABS: Slide Review Reflex No
[2023-09-20 09:53] LABS: Albumin* 4.4 g/dL (3.3-5.0); Chloride* 103 mmol/L (96-114)
[2023-09-20 09:54] LABS: Potassium* 3.4 mmol/L (3.6-5.1); Sodium* 135 mmol/L (135-149)
[2023-09-20 09:56] LABS: Anion Gap 8 mEq/L (7-15); Bilirubin Total* 0.3 mg/dL (0.1-1.5); Carbon Dioxide* 24 mmol/L (20-32); Creatinine* 0.5 mg/dL (0.5-1.5); Est. Creatinine Clearance* 53.91; Estimated Glomerular Filt Rate 105 ml/min; Total Protein* 7.3 g/dL (6.0-8.3)
[2023-09-20 09:57] LABS: Alanine Aminotransferase* 25 U/L (4-35); Alkaline Phosphatase* 78 U/L (40-150); Aspartate Amino Transferase* 25 U/L (12-35); Blood Urea Nitrogen* 20 mg/dL (7-30); Glucose* 133 mg/dL (60-115)
[2023-09-20] MEDS: SODIUM CHLORIDE 0.9 % (FLUSH) 10 ML SYRINGE IVF ×2 (10:30→15:34)
[2023-09-20] MEDS: 0.9 % SODIUM CHLORIDE 250 ml IV (10:30)
[2023-09-20] MEDS: PERTUZUMAB 420 MG, TUBING SECONDARY 1 EACH in 0.9 % SODIUM CHLORIDE 250 ml 250 ML 528 MG IVPB (11:45)
[2023-09-20] MEDS: FOSAPREPITANT 150 MG inj 150 MG in 0.9 % SODIUM CHLORIDE 250 ml 250 ML 780 MG IVPB (13:04)
[2023-09-20] MEDS: PALONOSETRON 0.25 MG/5 ML inj IV (13:05)
[2023-09-20] MEDS: POTASSIUM CHLORIDE 10 MEQ CAPSULE ER 20 MEQ PO (13:47)
[2023-09-20] MEDS: HEPARIN 500 UNIT/5 ML SYRINGE IVF (15:34)
--- NOTE | 2023-09-26 10:32 | ONC.NURNOTE ---
Addendum entered by Josefina Celis 09/26/23 13:00: Message left with patient informing her that an Rx for Ativan has been sent to her pharmacy. Patient encouraged to call with questions or concerns. Original Note: Patient called with an update on her condition. Patient had her 4th cycle of TCHP on 09/19. She reports that starting the day after, she felt flu like and had no energy. Denies fever. She slept for almost 18 hours. The flu like feeling and low energy continued through Sunday. Today, she reports diarrhea x 3, had an emesis this morning and continues to feel drained. Patient states she is only short of breath when she climbs the stairs to her apartment. She is appropriately managing her symptoms by taking Imodium for diarrhea, is staying hydrated, she has a good appetite and denies need for antiemetics. Her biggest concern is her anxiety. She is so tired that it is making her emotional and anxious. She is requesting a re-fill of her Ativan to help with her anxiety. She is in the process of transferring her primary care to Dr. Pedro but does not have an appointment until 10/07.
[2023-10-11 09:16] LABS: Basophils Absolute Auto 0.03 K/uL (0.00-0.30); Basophils Percent Auto 0.4 % (0.0-3.0); Eosinophils Absolute Auto 0.08 K/uL (0.00-0.50); Eosinophils Percent Auto 0.9 % (0.0-7.0); Hematocrit 26.1 % (33.0-51.0); Hemoglobin* 8.8 gm/dL (12.0-16.0); Immature Granulocytes Abs Auto 0.03 K/uL (0.00-0.30); Immature Granulocytes Pct Auto 0.4 %; Lymphocytes Absolute Auto 2.83 K/uL (0.90-2.90); Lymphocytes Percent Auto 33.5 % (20-44); Mean Corpuscular HGB Conc 34 gm/dL (32-36); Mean Corpuscular Hemoglobin 37 pg (26-34); Mean Corpuscular Volume 110 fL (80-100); Monocytes Percent Auto 13.2 % (0.0-11.0); Neutrophils Absolute Auto 4.36 K/uL (1.7-7.0); Neutrophils Percent Auto 51.6 % (42.0-72.0); Platelet Count* 233 K/uL (140-440); RDW Coefficient of Variation % 16.8 % (11.5-15.5); Red Blood Count 2.37 m/uL (4.00-5.20); White Blood Count* 8.44 K/uL (4.50-11.00)
[2023-10-11 09:18] LABS: Slide Review Reflex No
[2023-10-11 09:28] LABS: Albumin* 4.1 g/dL (3.3-5.0); Chloride* 106 mmol/L (96-114); Sodium* 138 mmol/L (135-149)
[2023-10-11 09:29] LABS: Potassium* 3.5 mmol/L (3.6-5.1)
[2023-10-11 09:31] LABS: Alkaline Phosphatase* 76 U/L (40-150); Anion Gap 3 mEq/L (7-15); Aspartate Amino Transferase* 25 U/L (12-35); Bilirubin Total* 0.3 mg/dL (0.1-1.5); Blood Urea Nitrogen* 18 mg/dL (7-30); Carbon Dioxide* 29 mmol/L (20-32); Creatinine* 0.6 mg/dL (0.5-1.5); Est. Creatinine Clearance* 53.91; Estimated Glomerular Filt Rate 101 ml/min; Total Protein* 6.8 g/dL (6.0-8.3)
[2023-10-11 09:32] LABS: Alanine Aminotransferase* 22 U/L (4-35); Calcium* 9.6 mg/dL (8.4-10.6); Glucose* 97 mg/dL (60-115)
[2023-10-11] MEDS: PERTUZUMAB 420 MG, TUBING SECONDARY 1 EACH in 0.9 % SODIUM CHLORIDE 250 ml 250 ML 528 MG IVPB (11:08)
[2023-10-11] MEDS: PALONOSETRON 0.25 MG/5 ML inj IV (12:24)
[2023-10-11] MEDS: FOSAPREPITANT 150 MG inj 150 MG in 0.9 % SODIUM CHLORIDE 250 ml 250 ML 800 MG IVPB (12:26)
[2023-10-11] MEDS: HEPARIN 500 UNIT/5 ML SYRINGE IVF (14:53)
[2023-10-11] MEDS: SODIUM CHLORIDE 0.9 % (FLUSH) 10 ML SYRINGE IVF (14:54)
--- NOTE | 2023-10-18 15:21 | ONC.NURNOTE ---
I left a message for patient with lab results. Patient informed of stable Hgb and improved KCL. Patient to return call with questions or concerns.
[2023-10-25 14:43] LABS: Hemoglobin* 9.4 gm/dL (12.0-16.0)
--- NOTE | 2023-10-25 15:24 | ONC.NURNOTE ---
Left message for patient informing her of Hgb results. No intervention needed at this time. Patient has follow up scheduled for 10/31 for consideration of her 6th cycle of TCHP.
[2023-11-01 09:01] LABS: Basophils Absolute Auto 0.03 K/uL (0.00-0.30); Basophils Percent Auto 0.3 % (0.0-3.0); Eosinophils Absolute Auto 0.04 K/uL (0.00-0.50); Eosinophils Percent Auto 0.4 % (0.0-7.0); Hematocrit 27.5 % (33.0-51.0); Hemoglobin* 9.5 gm/dL (12.0-16.0); Immature Granulocytes Abs Auto 0.05 K/uL (0.00-0.30); Immature Granulocytes Pct Auto 0.5 %; Lymphocytes Percent Auto 44.4 % (20-44); Mean Corpuscular HGB Conc 35 gm/dL (32-36); Mean Corpuscular Hemoglobin 39 pg (26-34); Mean Corpuscular Volume 114 fL (80-100); Monocytes Percent Auto 14.3 % (0.0-11.0); Neutrophils Percent Auto 40.1 % (42.0-72.0); Platelet Count* 273 K/uL (140-440); RDW Coefficient of Variation % 15.3 % (11.5-15.5); Red Blood Count 2.42 m/uL (4.00-5.20); White Blood Count* 9.32 K/uL (4.50-11.00)
[2023-11-01 09:03] LABS: Slide Review Reflex No
[2023-11-01 09:13] LABS: Albumin* 4.5 g/dL (3.3-5.0); Chloride* 102 mmol/L (96-114)
[2023-11-01 09:14] LABS: Potassium* 3.7 mmol/L (3.6-5.1); Sodium* 134 mmol/L (135-149)
[2023-11-01 09:16] LABS: Anion Gap 5 mEq/L (7-15); Aspartate Amino Transferase* 27 U/L (12-35); Bilirubin Total* 0.6 mg/dL (0.1-1.5); Carbon Dioxide* 27 mmol/L (20-32); Creatinine* 0.6 mg/dL (0.5-1.5); Est. Creatinine Clearance* 53.91; Estimated Glomerular Filt Rate 101 ml/min; Total Protein* 7.5 g/dL (6.0-8.3)
[2023-11-01 09:17] LABS: Alanine Aminotransferase* 30 U/L (4-35); Alkaline Phosphatase* 73 U/L (40-150); Blood Urea Nitrogen* 20 mg/dL (7-30); Calcium* 9.7 mg/dL (8.4-10.6); Glucose* 88 mg/dL (60-115)
[2023-11-01] MEDS: SODIUM CHLORIDE 0.9 % (FLUSH) 10 ML SYRINGE IVF ×2 (10:20→14:14)
[2023-11-01] MEDS: 0.9 % SODIUM CHLORIDE 250 ml IV (10:20)
[2023-11-01] MEDS: PERTUZUMAB 420 MG, TUBING SECONDARY 1 EACH in 0.9 % SODIUM CHLORIDE 250 ml 250 ML 528 MG IVPB (10:30)
[2023-11-01] MEDS: FOSAPREPITANT 150 MG inj 150 MG in 0.9 % SODIUM CHLORIDE 250 ml 250 ML 750 MG IVPB (11:45)
[2023-11-01] MEDS: PALONOSETRON 0.25 MG/5 ML inj IV (11:46)
[2023-11-01] MEDS: HEPARIN 500 UNIT/5 ML SYRINGE IVF (14:14)
--- NOTE | 2023-12-26 14:20 | URNOTE ---
Per [employer], prior auth is not required for Pertuzumab (J9306) and Ogivri(Q5114). Ref # [id number]
[2023-12-31 10:33] VITALS: BP 123/80; PULSE 100; RESP 16; TEMP 36.6; O2SAT 98
[2023-12-31 10:58] LABS: Basophils Absolute Auto 0.03 K/uL (0.00-0.30); Basophils Percent Auto 0.4 % (0.0-3.0); Eosinophils Absolute Auto 0.16 K/uL (0.00-0.50); Eosinophils Percent Auto 1.9 % (0.0-7.0); Hematocrit 36.5 % (33.0-51.0); Hemoglobin* 11.9 gm/dL (12.0-16.0); Immature Granulocytes Abs Auto 0.01 K/uL (0.00-0.30); Immature Granulocytes Pct Auto 0.1 %; Lymphocytes Percent Auto 18.3 % (20-44); Mean Corpuscular HGB Conc 33 gm/dL (32-36); Mean Corpuscular Hemoglobin 35 pg (26-34); Mean Corpuscular Volume 109 fL (80-100); Monocytes Percent Auto 9.3 % (0.0-11.0); Neutrophils Absolute Auto 5.98 K/uL (1.7-7.0); Platelet Count* 395 K/uL (140-440); RDW Coefficient of Variation % 12.5 % (11.5-15.5); Red Blood Count 3.36 m/uL (4.00-5.20); White Blood Count* 8.53 K/uL (4.50-11.00)
[2023-12-31 11:08] LABS: Slide Review Reflex No
[2023-12-31 11:10] LABS: Albumin* 4.7 g/dL (3.3-5.0); Chloride* 105 mmol/L (96-114); Sodium* 139 mmol/L (135-149)
[2023-12-31 11:11] LABS: Potassium* 3.4 mmol/L (3.6-5.1)
[2023-12-31 11:13] LABS: Alanine Aminotransferase* 22 U/L (4-35); Alkaline Phosphatase* 82 U/L (40-150); Anion Gap 10 mEq/L (7-15); Aspartate Amino Transferase* 31 U/L (12-35); Bilirubin Total* 0.6 mg/dL (0.1-1.5); Blood Urea Nitrogen* 20 mg/dL (7-30); Carbon Dioxide* 24 mmol/L (20-32); Creatinine* 0.8 mg/dL (0.5-1.5); Est. Creatinine Clearance* 53.21; Estimated Glomerular Filt Rate 82 ml/min; Glucose* 155 mg/dL (60-115); Total Protein* 7.4 g/dL (6.0-8.3)
[2023-12-31 11:14] LABS: Calcium* 9.8 mg/dL (8.4-10.6)
[2023-12-31] MEDS: PERTUZUMAB 840 MG, TUBING SECONDARY 1 EACH in 0.9 % SODIUM CHLORIDE 250 ml 250 ML 278 MG IV (12:09)
[2023-12-31] MEDS: 0.9 % SODIUM CHLORIDE 250 ml IV (13:37)
[2023-12-31] MEDS: HEPARIN 500 UNIT/5 ML SYRINGE IVF (13:38)
[2023-12-31] MEDS: SODIUM CHLORIDE 0.9 % (FLUSH) 10 ML SYRINGE IVF (13:38)
--- NOTE | 2023-12-31 13:44 | ONC.NURNOTE ---
enc her to increase potassium in her diet like patatoes and bananas
[2024-01-21 09:28] LABS: Basophils Absolute Auto 0.04 K/uL (0.00-0.30); Basophils Percent Auto 0.7 % (0.0-3.0); Eosinophils Absolute Auto 0.35 K/uL (0.00-0.50); Hematocrit 35.6 % (33.0-51.0); Hemoglobin* 11.7 gm/dL (12.0-16.0); Immature Granulocytes Abs Auto 0.01 K/uL (0.00-0.30); Immature Granulocytes Pct Auto 0.2 %; Lymphocytes Absolute Auto 2.04 K/uL (0.90-2.90); Lymphocytes Percent Auto 34.7 % (20-44); Mean Corpuscular HGB Conc 33 gm/dL (32-36); Mean Corpuscular Hemoglobin 34 pg (26-34); Mean Corpuscular Volume 104 fL (80-100); Monocytes Percent Auto 13.3 % (0.0-11.0); Neutrophils Absolute Auto 2.66 K/uL (1.7-7.0); Neutrophils Percent Auto 45.1 % (42.0-72.0); Platelet Count* 323 K/uL (140-440); RDW Coefficient of Variation % 12.5 % (11.5-15.5); Red Blood Count 3.42 m/uL (4.00-5.20); White Blood Count* 5.88 K/uL (4.50-11.00)
[2024-01-21 09:35] LABS: Slide Review Reflex No
[2024-01-21 09:51] LABS: Albumin* 4.6 g/dL (3.3-5.0); Chloride* 102 mmol/L (96-114)
[2024-01-21 09:52] LABS: Potassium* 3.9 mmol/L (3.6-5.1); Sodium* 134 mmol/L (135-149)
[2024-01-21 09:54] LABS: Anion Gap 7 mEq/L (7-15); Bilirubin Total* 0.5 mg/dL (0.1-1.5); Carbon Dioxide* 25 mmol/L (20-32); Creatinine* 0.6 mg/dL (0.5-1.5); Est. Creatinine Clearance* 53.21; Estimated Glomerular Filt Rate 100 ml/min; Total Protein* 7.2 g/dL (6.0-8.3)
[2024-01-21 09:55] LABS: Alanine Aminotransferase* 22 U/L (4-35); Alkaline Phosphatase* 79 U/L (40-150); Aspartate Amino Transferase* 27 U/L (12-35); Blood Urea Nitrogen* 21 mg/dL (7-30); Calcium* 9.8 mg/dL (8.4-10.6); Glucose* 105 mg/dL (60-115)
[2024-01-21] MEDS: PERTUZUMAB 420 MG, TUBING SECONDARY 1 EACH in 0.9 % SODIUM CHLORIDE 250 ml 250 ML 528 MG IV (11:06)
[2024-01-21] MEDS: HEPARIN 500 UNIT/5 ML SYRINGE IVF (12:17)
[2024-01-21] MEDS: SODIUM CHLORIDE 0.9 % (FLUSH) 10 ML SYRINGE IVF (12:17)
[2024-01-21] MEDS: 0.9 % SODIUM CHLORIDE 250 ml IV (12:17)
== END 2024-01-29 23:59 | disposition home or self-care (01) ==
LOC: CCIC 09:00
PROVIDERS: Clinical Nurse Specialist; PCP Nurse Practitioner Family; Referring Provider Nurse Practitioner Family; Visit Provider Physician Assistant
DX: C50.911 Malignant neoplasm of unspecified site of right female breast (principal); Z17.1 Estrogen receptor negative status [ER-]; Z51.12 Encounter for antineoplastic immunotherapy; Z90.13 Acquired absence of bilateral breasts and nipples; M85.80 Other specified disorders of bone density and structure, unspecified site; F41.9 Anxiety disorder, unspecified; G47.00 Insomnia, unspecified; Z72.0 Tobacco use
CPT/HCPCS: 36415; 36591; 80053; 85018; 85025; 96366; 96376; 96377; 96411; 96413; 96415; 96417; 99203; 99205; 99215; G0463; J2506; A9270; J1453; J1642; J2469; J7050; J9045; J9171; J9306; Q5114

== ENCOUNTER 2024-01-25 12:42 | Outpatient (CLI) | payer BC, SELFPAY ==
--- OUTSIDE RECORDS SUMMARY | 2024-01-25 12:45 | XMS_ITS | Clinical Summary ---
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 07/02/2023 Cancer Staging:Clinical:Stage IIIA(cT2, cN2, cM0, G3, ER-, ME-, HER2+) - Signed by Arina Haley MD [...] Encounters Date Type Department Care Team Description 12/11/2023 Lab Requisition [facility] [phone] Unknown, Doctor 11/18/2023 3:45 PM CDT Ancillary Procedure [facility] [address] [place] [address] 11/18/2023 3:00 PM CDT Office Visit [facility] [address] [place] [address] Irasema Santiago, BUILDING WRECKER Lower Back Pain 11/18/2023 Travel from Last 3 Months Immunizations Name Administration [...] mastect robert Cancer Sister 2 Laura bladder 17 No Known Problems Son Michelle Cancer-colon [...] Date Smoking Tobacco: Every Day Cigarettes 0.5 34.6 Started: 1989 Smokeless Tobacco: Never Tobacco Cessation:Ready [...] 170.2 cm (5' 7) 07/26/2023 6:58 AM PAPER FOLDER Body Mass Index 24.75 07/26/2023 6:58 AM PAPER FOLDER Plan of Treatment Upcoming Encounters Date Type Department Care Team (Late st Contact Info) Description 01/25/2024 1:00 PM CDT Ancillary Procedure [facility] [address] [place] [address] Health Maintenance Due Date Last Done Comments [...] Completed 01/29/2023 Medical Devices Implanted Type Area [employer] Counselor Device Identifier Shelf Expiration Date Model / Serial / Lot Power Port Isp Mri 6fr [id number] - [id number] Implanted:Qty: 1 on 07/17/2023 by Doris Aguillon DO at [facility] Left: Chest [employer] 11/08/2024 [id number] / / [id number] Procedures Procedure Name Priority Date/Time Associated Diagnosis Comments LAB TRACKING EVENT Routine 12/11/2023 12:54 PM CDT PATH BREAST CORE BIOPSY Routine 12/11/2023 10:38 AM CDT XR SPINE LUMBAR 3 VIEWS STAT 11/18/2023 3:48 PM CDT Acute right-sided low back pain with right-sided sciatica XR MAMMO TY BILAT DIAG JORGE 06/13/2023 10:35 AM PAPER FOLDER Lump in lower outer quadrant of right [...] Recently Relevant to Health Maintenance Results * LAB TRACKING EVENT (12/11/2023 12:54 PM CDT) Other (Other) Client Collect / Unknown 12/11/2023 12:54 PM CDT 12/11/2023 9:58 PM CDT Doctor Unknown LAB BILL ONLY [facility] [address] [place] [address], * PATH BREAST CORE BIOPSY (12/11/2023 10:38 AM CDT) Case Report Pathology Report ?Case: [id number] ? Authorizing Provider: ??Unknown, Doctor ?Collected: ? 12/11/2023 1038 ? Ordering Location: ? [facility] ?Received: ?12/12/2023 08 ? Pathologist: ? Carol Escalera MD ? Specimens: ?? A) - Right Breast Mastectomy ? B) - Right Breast Hazen Node ? C) - Right Axilla ? D) - Right Axilla ? E) - Left Breast Mastectomy ? 12/14/2023 1:38 PM CDT [facility] Final Diagnosis A) RIGHT BREAST, MASTECTOMY STATUS POST NEOADJUVANT CHEMOTHERAPY: 1. NO RESIDUAL INVASIVE CARCINOMA 2. 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 DCIS Span: Approximately 2.5 cm ?? 3. Margins: ?a. DCIS is >10 mm from all margins 4. Breast Ancillary Testing: Performed on prior case with invasive carcinoma ([id number]) ?a. Hormone Receptors: ?Estrogen receptor: Negative (see comment) ?Progesterone receptor: Negative ?b. HER2 by IHC: Positive (3+ by manual morphometry) 5. Surrounding breast with atypical lobular hyperplasia 6. Benign nipple B) RIGHT AXILLARY SENTINEL LYMPH NODES #1, EXCISIONAL BIOPSY: 1. Two benign lymph nodes (0/2) 2. Negative for treatment effect 3. Negative for malignancy C) RIGHT AXILLARY LYMPH NODE, WIRE-LOCALIZED EXCISIONAL BIOPSY: 1. One benign lymph node (0/1) 2. Core biopsy site is present 3. Treatment effect present 4. Negative for malignancy D) RIGHT AXILLARY SENTINEL LYMPH NODES #2, EXCISIONAL BIOPSY: 1. Two benign lymph nodes (0/2) 2. Treatment effect present in 1 of the 2 nodes 4. Negative for malignancy E) LEFT BREAST, MASTECTOMY: 1. Lobular carcinoma in-situ, classic type 2. Negative for ductal carcinoma in situ and invasive carcinoma 12/14/2023 1:38 PM CDT [facility] Comment The resection specimen shows no residual tumor. Histologic stromal changes consistent with treatment effect are present, measuring approximately 65 x 47 mm. Examination of the lymph nodes reveals no metastatic tumor and 2 lymph nodes with chemotherapy effect. RCB: 0 (RCB Class: pCR) 12/14/2023 1:38 PM CDT [facility] Clinical Information Right breast (9:00, 2 cm from the nipple) invasive ductal carcinoma, [place] grade III, with angiolymphatic invasion ([id number]). 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 She is now status post neoadjuvant chemotherapy. 12/14/2023 1:38 PM CDT [facility] Gross Description A) Received fresh, labeled with the patient's name and right breast short stitch superior, long stitch lateral, is a 375 gram, 18.0 (M-L) x 21.0 (S-I) x 3.0 (A-P) cm oriented right breast mastectomy specimen without attached axillary contents. There is an attached 6.7 x 2.7 cm portion of skin with a 1.0 x 1.0 x 0.5 cm everted nipple and 4.5 cm surrounding areola. No skin scars or lesions are identified. The specimen is inked: Anterior-superio r: Blue Anterior-inferio r: Red Posterior: Black The specimen is serially sectioned to reveal (9:00, 2.2 cm from the nipple) is a 6.5 (SI) x 4.7 (ML) x 2.5 (AP) cm sotelo-white dense fibrous area containing a biopsy clip. ??The fibrous area measures 1.5 cm from the posterior margin, 0.2 cm from the anterior-inferio r margin, and 0.4 cm from the anterior superior margin. ??A distinct mass, tumor bed, or lesion is not grossly identified. The remaining cut surfaces consist of 60% yellow, lobulated adipose tissue and 40% fibrous tissue. No lymph nodes are identified grossly. Well Cleaner sections are submitted (from lateral to medial): 1. ??Uninvolved tissue lateral to fibrous area 2. ??Most lateral slice of fibrous area with anterior-inferio r margin 3. ??Next consecutive slice of fibrous area 4. ??Next consecutive slice of fibrous area with anterior-superio r margin 5. ??Next consecutive slice of fibrous area with anterior-inferio r margin 6-10. ??Central composite slice of fibrous area submitted from superior to inferior spanning 6.5 cm with bracketing sections (superior aspect of each slice is inked orange) with anterior superior and anterior-inferio r margins 11. ??Next consecutive slice of fibrous area with anterior superior margin 12. ??Next consecutive slice of fibrous area with anterior superior margin 13. ??Next consecutive slice of fibrous area with posterior margin 14. ??Most medial slice of fibrous area (fibrous area spans 4.7 cm medial-lateral) 15. ??Uninvolved tissue lateral to fibrous area 16. ??Upper outer quadrant 17. ??Lower outer quadrant 18. ??Lower inner quadrant 19. ??Upper inner quadrant 20. ??Entire nipple Time removed from patient: 1100 Time placed in formalin: 1120 Date removed and placed in formalin: 12/11/23 Cold ischemic time < 60 minutes. The specimen was fixed in formalin for a minimum of 6 hours and not longer than 72 hours. [facility] [place]23 B) Received fresh, labeled with the patient's name and right sentinel lymph node biopsy #1, is a 4.2 x 3.1 x 1.0 cm sotelo-yellow fibrofatty tissue fragment palpated to reveal 2 possible lymph nodes measuring 1.5 x 0.3 x 0.3 cm and 2.5 x 1.0 x 0.6 cm. A biopsy clip is not grossly identified within the specimen. ??The lymph nodes are submitted entirely for frozen consultation on 2 chucks as follows: 1. ??1 possible lymph node, submitted intact 2. ??1 possible lymph node, serially sectioned Time removed from patient: 1127 Time placed in formalin: 1145 Date removed and placed in formalin: 12/11/23 Cold ischemic time < 60 minutes. The specimen was fixed in formalin for a minimum of 6 hours and not longer than 72 hours. C) Received fresh, labeled with the patient's name and wire localized right axilla, is a 8.5 x 3.0 x 1.5 cm fibrofatty tissue fragment palpated to reveal 1 possible lymph node measuring 4.0 x 1.2 x 1.0 cm. ??A biopsy clip is not grossly identified within the specimen. ??The lymph node is serially sectioned and submitted entirely for frozen consultation on 2 chucks with the remnant placed in 2 cassettes. Time removed from patient: 1207 Time placed in formalin: 1244 Date removed and placed in formalin: 12/11/23 Cold ischemic time < 60 minutes. The specimen was fixed in formalin for a minimum of 6 hours and not longer than 72 hours. D) Received fresh, labeled with the patient's name and sentinel node #2 right axilla, is a 3.0 x 2.1 x 1.2 cm sotelo-yellow fibrofatty tissue fragment palpated to reveal 2 lymph nodes measuring 1.0 x 1.0 x 0.3 cm and 1.7 x 0.5 x 0.3 cm. ??A biopsy clip is not grossly identified within the specimen. One lymph node is inked black, submitted in toto and the other lymph node is bisected. The lymph nodes are submitted entirely for frozen consultation on 1 rachell with the remnant placed in 1 cassette. Time removed from patient: 1207 Time placed in formalin: 1244 Date removed and placed in formalin: 12/11/2023 Cold ischemic time < 60 minutes. The specimen was fixed in formalin for a minimum of 6 hours and not longer than 72 hours. E) Received fresh, labeled with the patient's name and left breast, is a 287 gram, 20 (M-L) x 13 (S-I) x 3.5 (A-P) cm oriented left breast mastectomy specimen without attached axillary contents. There is an attached 6 x 2.1 cm portion of skin with a 0.7 x 0.7 cm everted nipple and 2.5 cm surrounding areola. No skin scars or lesions are identified. The specimen is inked: Anterior-superio r: Blue Anterior-inferio r: Red Posterior: Black At approximately 12:00, 6.2 cm from the nipple is a biopsy clip embedded within dense fibrous tissue. ??No distinct lesions are grossly identified. ??The biopsy site measures 0.8 cm from the posterior margin, 2.1 cm from the anterior superior margin, and 8.3 cm from the anterior-inferio r margin. The remaining cut surfaces consist of 50% yellow, lobulated adipose tissue and 50% fibrous tissue. No lesions or lymph nodes are identified grossly. Well Cleaner sections are submitted: 1. ??Tissue surrounding biopsy clip with posterior margin 2. ??Tissue surrounding biopsy clip with anterior superior margin 3-4. ??Upper outer quadrant 5-6. ??Lower outer quadrant 7-8. ??Lower inner quadrant 9-10. ??Upper inner quadrant 11. ??Nipple bed and nipple bed Time removed from patient: 1240 Time placed in formalin: 1254 Date removed and placed in formalin: 12/11/2023 Cold ischemic time < 60 minutes. The specimen was fixed in formalin for a minimum of 6 hours and not longer than 72 hours. [facility] 12/12/2023 12/14/2023 1:38 PM CDT [facility] Intraoperative Consultation A) RIGHT BREAST, MASTECTOMY, INTRAOPERATIVE CONSULTATION (Gross Evaluation Only): 1. Vague density at 9:00 grossly identified, no defined mass or lesion present 2. Biopsy site change is identified grossly 3. Margins are grossly negative 4. The mastectomy specimen is [address] Jennifer Henderson, 12/11/2023 11:12 AM B) LYMPH NODE, RIGHT AXILLARY SENTINEL, BIOPSY, INTRAOPERATIVE CONSULTATION WITH FROZEN SECTION: [Number of frozen sections prepared: 2] 1. ??Two lymph nodes are identified-large r lymph node with fibrosis, represents possible treatment related changes 2. ??No definitive residual malignancy Dr. Jennifer Henderson, 12/11/2023 11:45 AM C) LYMPH NODE, RIGHT AXILLARY, BIOPSY, INTRAOPERATIVE CONSULTATION WITH FROZEN SECTION: [Number of frozen sections prepared: 2] 1. A single lymph node is identified and is negative for malignancy Dr. Jennifer Henderson, 12/11/2023 12:44 PM D) LYMPH NODE, RIGHT AXILLARY SENTINEL, BIOPSY, INTRAOPERATIVE CONSULTATION WITH FROZEN SECTION: [Number of frozen sections prepared: 1] 1. Two lymph nodes are identified and are negative for malignancy Dr. Jennifer Henderson, 12/11/2023 12:44 PM E) LEFT BREAST, MASTECTOMY, INTRAOPERATIVE CONSULTATION (Gross Evaluation Only): 1. ??No visible or palpable lesions grossly identified 2. The mastectomy specimen is [address] Jennifer Henderson, 12/11/2023 12:54 PM Intraoperative consultation, which may have included frozen section preparation, gross specimen examination, and/or cytology touch imprints/smears, was performed by a pathologist during the surgical procedure. ??This testing was performed at: [facility] [address] [place] [address] 12/14/2023 1:38 PM CDT [facility] Microscopic Description The final diagnosis is based on microscopic examination of appropriate sections of all specimens. 12/14/2023 1:38 PM CDT [facility] SYNOPTIC REPORTING INVASIVE CARCINOMA OF THE BREAST: Resection INVASIVE CARCINOMA OF THE BREAST: RESECTION - A, B, C, D 8th Edition - Protocol posted: 05/23/2023 SPECIMEN ?? Procedure: ?Total mastectomy ?? Specimen Laterality: ?Right TUMOR ?? Histologic Type: ?No residual invasive carcinoma ?? Tumor Size: ?No residual invasive carcinoma ?? Ductal Carcinoma In Situ (DCIS): ?Present ? : ?Only DCIS is present after presurgical (neoadjuvant) therapy ? Size (Extent) of DCIS: ?Estimated size (extent) of DCIS is at least (Millimeters): 25 mm ? Architectural Patterns: ?Solid ? Nuclear Grade: ?Grade III (high) ? Necrosis: ?Not identified ?? Lobular Carcinoma In Situ (LCIS): ?Not identified ?? Lymphatic and / or Vascular Invasion: ?Not identified ?? Dermal Lymphatic and / or Vascular Invasion: ?Not identified ?? Treatment Effect in the Breast: ?No residual invasive carcinoma is present in the breast after presurgical therapy ?? Treatment Effect in the Lymph Nodes: ?No lymph node metastases. Fibrous scarring or histiocytic aggregates, possibly related to prior lymph node metastases with pathologic complete response ?? Residual Cancer Ceres (RCB) Calculation: ? Primary Tumor Bed: ? Greatest Dimension of Primary Tumor Bed Area (Millimeters): ?0 mm ? Second Greatest Dimension of Primary Tumor Bed Area (Millimeters): ?0 mm ? Percentage of Overall Cancer Cellularity: ?0 % ? Percentage of Cancer that is in situ Disease: ?100 % ? Lymph Nodes: ? Number of Positive Lymph Nodes: ?0 ? Diameter of Largest [place] Metastasis (Millimeters): ?0 mm ? RCB Calculations: ? Residual Cancer Ceres: ?0 ? Residual Cancer Ceres Class: ?RCB-0 (pCR) MARGINS ?? Margin Status for DCIS: ?All margins negative for DCIS ? Distance from DCIS to Closest Margin: ?Greater than: 10 mm ? Closest Margin(s) to DCIS: ?From all margins REGIONAL LYMPH NODES ?? Regional Lymph Node Status: ? : ?All regional lymph nodes negative for tumor ? Total Number of Lymph Nodes Examined (sentinel and non-sentinel): ?5 ? Number of Hazen Nodes Examined: ?4 pTNM CLASSIFICATION (AJCC 8th Edition) ?? Reporting of pT, pN, and (when applicable) pM categories is based on information available to the pathologist at the time the report is issued. As per the AJCC (Chapter 1, 8th Ed.) it is the managing physician? s responsibility to establish the final pathologic stage based upon all pertinent information, including but potentially not limited to this pathology report. ?? Modified Classification: ?y ?? pT Category: ?pTis (DCIS) ?? pN Category: ?pN0 ?? Comment(s): ?Block(s) for potential future ancillary testing: Biopsy [id number] 12/14/2023 1:38 PM CDT [facility] Additional Information Interpreted at [facility], Central Laboratory - [address] [address] 12/14/2023 1:38 PM CDT [facility] ENTRAL LABORATORY Other (Right Breast Mastectomy) 12/11/2023 10:38 AM CDT 12/12/2023 8:22 AM CDT Specimen (specimen) (Right Breast Hazen Node) 12/11/2023 11:09 AM CDT 12/12/2023 8:22 AM CDT Specimen (specimen) (Right Axilla) 12/11/2023 11:48 AM CDT 12/12/2023 8:22 AM CDT Specimen (specimen) (Right Axilla) 12/11/2023 11:56 AM CDT 12/12/2023 8:22 AM CDT Specimen (specimen) (Left Breast Mastectomy) 12/11/2023 12:27 PM CDT 12/12/2023 8:22 AM CDT Doctor Unknown PATHOLOGY/CYTOLOGY [facility] [address] [place] [address], * XR SPINE LUMBAR 3 VIEWS (11/18/2023 3:48 PM CDT) Anatomical Region Laterality Modality LUMBAR SPINE Computed Radiogr aphy 11/18/2023 3:58 PM CDT Narrative 11/18/2023 3:58 PM CDT For Patients: ??As a result of the Cures Act, medical [...] Signed) Irasema Santiago NP GENERAL IMAGING * XR MAMMO TY BILAT DIAG (06/13/2023 10:35 AM PAPER FOLDER) Anatomical Region Laterality Modality BREASTS, Breast Left, Breast Right Bilateral Mammography, Other 06/13/2023 12:3 4 PM PAPER FOLDER Impressions 06/14/2023 7:26 AM PAPER FOLDER 1. At the 9 o'clock position RIGHT [...] your referring provider. Narrative 06/14/2023 7:26 AM PAPER FOLDER For Patients: As a result of the Century Cures Act, [...] x 2.1 x 1.8 cm. Milena Powell BUILDING WRECKER MAMMO * LC HCV ANTIBODY RFX TO QUANT PCR (01/29/2023 11:21 AM CDT) [facility] HCV Ab Non Reactive Non Reactive 02/01/2023 1:09 PM CDT [facility] ([facility] Blood BLOOD SPECIMEN / Unknown Venipuncture / Unknown 01/29/2023 11:21 AM CDT 01/29/2023 11:24 AM CDT Narrative [facility] ([facility] - 02/01/2023 1:09 PM CDT Performed at: ??[address] ??[id number] Hairspring Staker: Claude Farrar MD, Phone: ??[phone] Milena Powell NP LABORATORY [facility] ([facility]) [address] [place] [address], * (ABNORMAL) LIPID PANEL W REFLEX MEASURED LDL (01/29/2023 11:21 AM CDT) [facility] CHOLESTEROL,TOTAL 303(H) 100 - 199 mg/dL 01/29/2023 11:56 AM [facility] TRIGLYCERIDES 145 <150 mg/dL 01/29/2023 11:56 AM T [facility] HDL CHOLESTEROL 101 >40 mg/dL 11:56 AM T [facility] NON-HDL CHOLESTEROL 202(H) <145 mg/dl 01/29/2023 11:56 AM [facility] CHOL/HDL RATIO 3.00 <4.50 01/29/2023 11:56 AM [facility] LDL CHOLESTEROL 173(H) <=130 mg/dL 01/29/2023 11:56 AM [facility] VLDL CHOLESTEROL 29 <=30 mg/dL 01/29/2023 11:56 AM CDT [facility] PROVIDER ORDERED STATUS RANDOM 01/29/2023 11:56 AM CDT [facility] Blood BLOOD SPECIMEN / Unknown Venipuncture / Unknown 01/29/2023 11:21 AM CDT 01/29/2023 11:24 AM CDT Milena Powell BUILDING WRECKER CHEMISTRY Performing Organization Address City/[facility]/ZIP Co de Phone Number [facility] [address] [place] [address] * HIV-1 RNA QUANT (01/29/2023 11:21 AM CDT) HIV-1 RNA QUANT HIV-1 RNA not detected HIV-1 RNA not detected copies/mL 01/31/2023 1:45 PM CDT [facility] Blood BLOOD SPECIMEN / Unknown Venipuncture / Unknown 01/29/2023 11:21 AM CDT 01/29/2023 11:24 AM CDT Narrative [facility] - 01/31/2023 1:45 PM CDT Method: Sameer HIV-1 Test Milena Powell BUILDING WRECKER SEND OUTS Performing Organization Address City/[facility]/ZIP Co de Phone Number [facility] [address] [place] [address], [place] * (ABNORMAL) HPV HIGH RISK (01/29/2023 10:10 AM CDT) TYPE 16 Negative Negative 02/01/2023 5:22 PM CDT [facility] TR[facility] LABORATORY TYPE 18 Negative Negative 02/01/2023 5:22 PM CDT [facility] TR[facility] LABORATORY OTHER HIGH RISK TYPES Positive(A) Negative 02/01/2023 5:22 PM CDT [facility] TR[facility] LABORATORY Other (Cervical) Non-Blood / Unknown 01/29/2023 10:10 AM CDT 01/30/2023 1:55 PM CDT Narrative [facility] - 02/01/2023 5:22 PM CDT Specimen is positive for the DNA of any one of, or combination of, the following high risk HPV types: 31, 33, 35, 39, 45, 51, 52, 56, 58, 59, 66, 68. HPV types 16 and 18 DNA were undetectable or below the pre-set threshold. ? Methodology: Blayne Sameer 4800 HPV Test Milena Powell NP MICROBIOLOGY [facility] [address] [place] [address], from Last 3 Months or Most Recently Relevant to Health Maintenance Advance Directives Documents on File Type Date Recorded Patient Well Cleaner Expl anation Healthcare Directive 07/19/2023 024 * [...] Code Status Discussion: Not Discussed Care Teams Electrical Test Technician Relationship Specialty Start Date End Date Milena Powell NP [address] [place] [address] PCP - General Nurse Practitioner - Family 01/29/23 Iliana Dunaway, RN [address] [place] [address] Nurse Navigator - Oncology Registered Nurse 06/18/23 Senait Tilley, RN [address] [address] Nurse Navigator - Oncology Registered Nurse 06/20/23 Arina Haley MD [address] [address] Surgery - General 06/20/23 Kalli Brandon NP [address] [place] [address] Nurse Practitioner Hematology and Oncology 07/10/23 Sowmya Etienne MD [address] [place] [address] Medical Oncologist Hematology and Oncology 07/10/23
--- OUTSIDE RECORDS SUMMARY | 2024-01-25 12:45 | XMS_ITS | Encounter Summary ---
Author Organization [facility] Address [address] [place] [address] Care Team Providers Care Hospice Chaplain Name Role Phone Unavailable Primary Care Provider Unavailabl e Encounter Details Date Type Department Care Team (Late st Contact Info) Description 01/23/2024 Clinical Communication Department of Radiation Oncology in [place], [place] [address] [place] [phone] Daniel Zuniga M.D. [address] [place] [phone] Social History Tobacco Use Types Packs/Day Years Used Date Smoking Tobacco: Every Day Cigarettes E-cigarettes Smokeless Tobacco: Never Nutrition Answer Date Recorded Nutrition: EVOO Fat Source 13 01/05 Nutrition: Servings of Fruits/Vegetables per Day Not on file 01/06/2020 Dental Answer Date Recorded Dental: Regular Dentist Unknown 08/19/19 21 Sex and Gender Information Value Date Recorded Sex Assigned at Not on file Gender Identity Not on file Sexual Orientation Not on file documented as of this encounter Miscellaneous Notes * Telephone Encounter - Conchis Calderon - 01/23/2024 3:02 PM CDT Other Reason for Call Caller: Sondra Relationships to patient: Self Reason for call: Patient called to state that should would like to cancel her EST visit with JIMI on02/06 and that she would not like to proceed with radiation treatments. I cancelled her appointment.I let that patient know that I would send a message to the care team and that JIMI or another memberof her care team here may reach out to her to discuss further and she was understanding. documented in this encounter Plan of Treatment Not on file documented as of this encounter Visit Diagnoses Not on filedocumented in this encounter
--- OUTSIDE RECORDS SUMMARY | 2024-01-25 12:45 | XMS_ITS | Clinical Summary ---
Author Organization [facility] Address [address] [place] [address] Care Team Providers Care Commercial Collector Name Role Phone Unavailable Primary Care Provider Unavailabl e Source Comments Patient records contain information from all sites at [facility]. For routine questions regarding patient records, call [phone] during business hours, M-F 8:00 AM - 5:00 PM Central Time. Record requests for emergency care only can be directed to [phone] at any time.[facility] Allergies Active Allergy Reactions Criticality Noted Date Comments Sulfa (Sulfonamide Antibiotics) Other (see comments) 08/07/2017 Muscle cramping Medications Medication Sig Dispensed Refills Start Date End Date Status hydroCHLOROthiazide (HYDRODIURIL) 25 mg tablet Take 25 mg by mouth. 01/28/2018 Active sertraline (ZOLOFT) 100 mg tablet Take 200 mg by mouth. Active multivitamin-minerals (ICAPS PLUS) tablet Take 1 tablet by mouth. 11/27/2017 Active zolpidem (AMBIEN) 5 mg tablet Take 5 mg by mouth. 06/23/2018 Active ibuprofen (ADVIL,MOTRIN) 200 mg tablet Take 1-4 tablets by mouth. 11/27/2017 Active dimethicone 2 % cream Apply a thin amount daily 118 mL 1 06/25/2018 Active gabapentin (Neurontin) 100 mg capsule Take 1 capsule by mouth every 4 (four) hours PM. 01/01/2024 Active Active Problems Problem Noted Date Diagnosed Date Malignant Neoplasm Of Breast Upper Outer Quadrant Female Right 08/02/2023 Cancer Staging:Clinical stage from 08/02/2023:Stage IIIA(cT3, cN1, cM0, G3, ER-, WA-, HER2+) - Signed by Alicia Fernandez M.D. 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 P.A. on 12/24/2023 Encounters Date Type Department Care Team Description 01/23/2024 Clinical Communication Department of Radiation Oncology in [address] [address] Daniel Zuniga M.D. 01/02/2024 1:19 PM CDT - 01/18/2024 10:53 AM CDT Hospital Encounter Department of Radiation Oncology in [address] [phone] Daniel Zuniga M.D. Malignant Neoplasm Of Breast Upper Outer Quadrant Female Right (HCC) (Primary Dx) 12/28/2023 Orders Only Department of Radiation Oncology in [address] [phone] Sondra Jenkins APRN, C.N.P., D.N.P. Malignant Neoplasm Of Breast Upper Outer Quadrant Female Right (HCC) (Primary Dx) from Last 3 Months Immunizations Name Administration Dates Next Due SARS-COV-2 (COVID-19) - MODERNA(Discontinued) Family History Medical History Relation Name Comments Breast cancer Aunt 1 Colon cancer Aunt 2 Breast cancer Sister 1 Bladder cancer Sister 2 Relation Name Status Comments Aunt 1 Aunt 2 Sister 1 Sister 2 Social History Tobacco Use Types Packs/Day Years [...] on file Sexual Orientation Not on file Last Filed Vital Signs Vital Sign Reading Time Taken Comments Blood Pressure 119/60 01/02/2024 1:23 PM CDT Pulse 90 01/02/2024 1:23 PM CDT Temperature 36.8 ??C (98.2 ??F) 01/02/2024 1:23 PM CD T Respiratory Rate 16 06/25/2018 10:33 AM [employer] Oxygen Saturation - - Inhaled Oxygen Concentration - - Weight 70.8 kg (156 lb 1.4 oz) 01/02/2024 1:23 P M CDT Height - - Body Mass Index - - Plan of Treatment Health Maintenance Due Date Last Done Comments CT Colonography 1959 Cervical Cancer Screening 1959 Cologuard 1959 Colonoscopy 1959 Colorectal Cancer Screening 1959 FIT 1959 HIV Screening 1959 Hepatitis C Screening 1959 Pneumococcal vaccine (0-64 y ears) (1 of 2 - PCV) 12/20/1965 DTaP,Tdap,and Td Vaccines (3 - Td or Tdap) 07/02/2019 07/02/2009, 06/11/2008 COVID-19 Vaccine (4 - 2022-2 4 season) 2023 06/07/2021, 07/12/2020, 06/14/2020 Zoster Vaccines (2 of 2) 03/26/2023 01/29/2023 Depression Screening (Annual PHQ-2) 06/11/2023 Influenza Vaccine (#1) 2024 07/18/2023, 2019 Tobacco Cessation counseling 10/30/2024 10/31/2023 Fasting Glucose for Diabetes Screening 07/26/2026 07/26/2023, 07/25/2023, 07/18/2023, Additional history exists Lipid (Cholesterol) Screening 01/30/2028 01/29/2023, 11/24/2021 Mammogram Discontinued 12/11/2023, 07/0 07/2023, 12/11/2023, Additional history exists Procedures Procedure Name Priority Date/Time Associated Diagnosis Comments OUTSIDE MG MAMMOGRAM Routine 12/11/2023 12:10 PM CDT OUTSIDE MG MAMMOGRAM Routine 12/11/2023 12:05 PM CDT OUTSIDE MG MAMMOGRAM Routine 12/11/2023 11:25 AM CDT OUTSIDE MG MAMMOGRAM Routine 12/11/2023 10:55 AM CDT OUTSIDE US Routine 12/11/2023 8:05 AM CDT from Last 3 Months Results * MM surgical specimen RT-Outside Mammogram (12/11/2023 12:10 PM CDT) Only the most recent of4 resultswithin the time period is included. Narrative [facility] - 12/25/2023 9:35 AM CDT This order has been created and auto-finalized to support the import of outside images. If available, original interpretation can be found on the Media Tab in Chart Review, in Document Viewer, as an image in QREADS or as an Addendum. If a re-interpretation or overread is required please follow defined workflow.?? Provider Not In System IMG BI PROCEDURES Performing Organization Address City/[facility]/ZIP Co de Phone Number [facility] NA * US wire loc soft tissue 1st-Outside US (12/11/2023 8:05 AM CDT) Narrative [facility] - 12/25/2023 9:35 AM CDT This order has been created and auto-finalized to support the import of outside images. If available, original interpretation can be found on the Media Tab in Chart Review, in Document Viewer, as an image in QREADS or as an Addendum. If a re-interpretation or overread is required please follow defined workflow.?? Provider Not In System IMG US PROCEDURES Performing Organization Address City/[facility]/ZIP Co de Phone Number [facility] NA from Last [address] [place] [id number]
--- OUTSIDE RECORDS SUMMARY | 2024-01-25 12:45 | XMS_ITS | Encounter Summary ---
Author Organization [facility] Address [address] [place] [address] Care Team Providers Care Window Shade Cutter And Mounter Name Role Phone Unavailable Primary Care Provider Unavailabl e Reason for Referral * Outpatient (Routine) - Authorized Specialty Diagnoses / Procedures Referred By Nader mckoy Referred To Contact Radiation Oncology Daniel Zuniga M.D. [address] [place] [address] [facility] Referral ID Status Reason Start Date Expiration Date V isits Requested Visits Authorized [id number] Authorized 01/18/2024 07/19/2025 1 1 Scheduling Instructions Check on manager audit filling Reason for Visit * Appointment Request (Routine) - Closed Specialty Diagnoses / Procedures Referred By Nader mckoy Referred To Contact Radiation Oncology Diagnoses Malignant Neoplasm Of Breast Female Right (HCC) Genetic Susceptibility To Disease Absence Of Breast Acquired Bilateral Chelsea Lee P.A.-C., P.A. [address] [place] [address] Referral ID Status Reason Start Date Expiration Date Visits Re quested Visits Authorized [id number] Closed 12/25/2023 12/24/2024 1 1 Encounter Details Date Type Department Care Team (Latest Contact Info) Description 01/02/2024 1:19 PM CDT - 01/18/2024 10:53 AM CDT Hospital Encounter Department of Radiation Oncology in [place], [place] [address] [place] [address] Daniel Zuniga M.D. [address] [place] [address] Malignant Neoplasm Of Breast Upper Outer Quadrant Female Right (HCC) (Primary Dx) Social History Tobacco Use Types Packs/Day Years [...] on file documented as of this encounter Last Filed Vital Signs Vital Sign Reading Time Taken Comments Blood Pressure 119/60 01/02/2024 1:23 PM CDT Pulse 90 01/02/2024 1:23 PM CDT Temperature 36.8 ??C (98.2 ??F) 01/02/2024 1:23 PM CD T Respiratory Rate - - Oxygen Saturation - - Inhaled Oxygen Concentration - - Weight 70.8 kg (156 lb 1.4 oz) 01/02/2024 1:23 P M CDT Height - - Body Mass Index - - documented in this encounter Medications at Time of Discharge Medication Sig Dispensed Refills Start Date End Date gabapentin (Neurontin) 100 mg capsule Take 1 capsule by mouth every 4 (four) hours PM. 01/01/2024 hydroCHLOROthiazide (HYDRODIURIL) 25 mg tablet Take 25 mg by mouth. 01/28/2018 ibuprofen (ADVIL,MOTRIN) 200 mg tablet Take 1-4 tablets by mouth. 11/27/2017 multivitamin-minerals (ICAPS PLUS) tablet Take 1 tablet by mouth. 11/27/2017 sertraline (ZOLOFT) 100 mg tablet Take 200 mg by mouth. zolpidem (AMBIEN) 5 mg tablet Take 5 mg by mouth. 06/23/2018 dimethicone 2 % cream Apply a thin amount daily 118 mL 1 06/25/2018 documented as of this encounter Consult Notes * Daniel Zuniga M.D. - 01/02/2024 1:30 PM CDT SUBJECTIVE REQUESTING PROVIDER Chelsea Lee P.A.-Josefina, P.A. REASON FOR CONSULT 1. Malignant Neoplasm Of Breast Upper Outer Quadrant Female Right (HCC) HISTORY OF PRESENT ILLNESS Ms. Sondra Singh is a 63 y.o. 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 I am asked by Ms. Lee and to evaluate the patient for radiotherapy. Her oncologic history is as follows: Oncology History Malignant Neoplasm Of Breast Upper Outer Quadrant Female Right (HCC) 05/2023 Other 05/15/2023 - patient presented to urgent care with 10 days of palpable right breast mass, treated for mastitis with antibiotics. 06/12/2023 - presented to primary care as the breast mass had not resolved or improved 06/13/2023 Critical Imaging Bilateral diagnostic mammogram FINDINGS: No discrete mass, architectural distortion or malignant [...] measuring 3.6 x 2.1 x 1.8 cm. 06/13/2023 Biopsy/Pathology Final Diagnosis A) RIGHT BREAST, 9:00, 2 CM FROM NIPPLE, MASS, ULTRASOUND-GUIDED CORE BIOPSY: 1. Invasive ductal carcinoma a. Rolando grade: III of III; [place] score: 9 of 9 b. Angio-lymphatic invasion: Present c. Associated DCIS: Present d. Subtypes: Solid and comedo e. Grade of DCIS: 3 of 3 2. Breast Ancillary Testing: a. Hormone Receptors: Estrogen receptor: Negative (see comment) Progesterone receptor: Negative b. HER2 by IHC: Positive (3+ by manual morphometry) 06/28/2023 Critical Imaging PET/CT -18 x 14 mm right mid breast mass has a max SUV of 24.9. -There are several FDG avid right axillary nodes. Samples: 17 mm with max SUV of 22.7; 16 x 15 mm with max SUV of 29.1. 07/09/2023 Biopsy/Pathology Final Diagnosis A) RIGHT AXILLA, LYMPH NODE, 15 CM FROM NIPPLE, ULTRASOUND-GUIDED CORE BIOPSY: 1. Metastatic carcinoma to a lymph node, characterized by: a. Metastatic carcinoma measures at least 0.5 mm b. Negative for extracapsular extension in this biopsy 2. One fragment of lymph node with fibrosis (see comment) Comment A) The metastatic carcinoma is morphologically similar to the patient's primary breast carcinoma (prior biopsy [id number]). Breast ancillary testing performed on the patient's right breast cancer showed the following results: Breast Ancillary Testing: [id number] a. Hormone Receptors: Estrogen receptor: Negative (see comment) Progesterone receptor: Negative b. HER2 by IHC: Positive (3+ by manual morphometry) If clinically indicated, breast ancillary testing can also be performed on the metastatic tumor in the current case, upon clinical request. Per review of the patient's chart, the patient has a history of lesion removal from the right axilla with subsequent infection. Prior attempted FNA of a ridge of subcutaneous tissue in the right axilla was nondiagnostic ([id number]). The fibrosis seen in the current lymph node biopsy may be due to the patient's prior procedures/infection. 07/09/2023 Critical Imaging Right axilla US FINDINGS: four abnormal-morphology lymph nodes with thickened cortices and partially or fully effaced fatty august. A sales representative girls' apparel lymph node 15 cm from the nipple measures 1.5 x 1.3 x 1.5 cm with cortex measuring 1.3 cm in thickness. 07/11/2023 Critical Imaging Bilateral MR Breast RIGHT Breast: There is mass and non-mass enhancement, occupying the upper outer quadrant, extendingclockwise from 8 o'clock to 2 o'clock, anterior to posterior depth. This area in total spans at least 7.7 x 4.6 x 5.0 cm. The largest discrete masses present at the anterior aspect of the enhancement at 9 o'clock, anterior depth measuring 1.8 x 1.5 x 2.2 cm. Artifact from a biopsy marker clip is seen at the posterolateral aspect of the mass. This is consistent with the biopsy proven malignancy. This corresponds to the distortion and calcifications seen mammographically. LEFT Breast: There are no suspicious areas of enhancement. Lymph Nodes: At least two abnormal enlarged RIGHT axillary lymph nodes, the largest of which measures 2.5 x 1.7 cm. The other abnormal lymph node contains a biopsy marker clip, consistent with [place] metastasis. No abnormal LEFT axillary lymph nodes. No abnormal internal mammary lymph nodes. 07/19/2023 - 11/01/2023 Chemotherapy Completed 6 cycles of [address]P [address] Dr[address] Alicia Fernandez, [facility] 12/11/2023 Surgery and Procedures Bilateral mastectomy with right axilla sentinel lymph node biopsy with Dr. Cassidy Coleman Final Diagnosis A) RIGHT BREAST, MASTECTOMY STATUS POST NEOADJUVANT CHEMOTHERAPY: 1. NO RESIDUAL INVASIVE CARCINOMA 2. Scattered foci of residual ductal carcinoma in situ (DCIS), nuclear grade 3, Cribriform and Solid type a. DCIS Span: Approximately 2.5 cm 3. Margins: a. DCIS is >10 mm from all margins 4. Breast Ancillary Testing: Performed on prior case with invasive carcinoma ([id number]) a. Hormone Receptors: Estrogen receptor: Negative (see comment) Progesterone receptor: Negative b. HER2 by IHC: Positive (3+ by manual [...] ductal carcinoma in situ and invasive carcinoma Comment The resection specimen shows no residual tumor. Histologic stromal changes consistent with treatment effect are present, measuring approximately 65 x 47 mm. Examination of the lymph nodes reveals no metastatic tumor and 2 lymph nodes with chemotherapy effect. SYNOPTIC REPORTING SPECIMEN Procedure: Total mastectomy Specimen Laterality: Right TUMOR Histologic Type: No residual invasive carcinoma Tumor Size: No residual invasive carcinoma Ductal Carcinoma In Situ (DCIS): Present : Only DCIS is present after presurgical (neoadjuvant) therapy Size (Extent) of DCIS: Estimated size (extent) of DCIS is at least (Millimeters): 25 mm Architectural Patterns: Solid Nuclear Grade: Grade III (high) Necrosis: Not identified Lobular Carcinoma In Situ (LCIS): Not identified Lymphatic and / or Vascular Invasion: Not identified Dermal Lymphatic and / or Vascular Invasion: Not identified Treatment Effect in the Breast: No residual invasive carcinoma is present in the breast after presurgical therapy Treatment Effect in the Lymph Nodes: No lymph node metastases. Fibrous scarring or histiocytic aggregates, possibly related to prior lymph node metastases with pathologic complete response Residual Cancer [place] (RCB) Calculation: Primary Tumor Bed: Greatest Dimension of Primary Tumor Bed Area (Millimeters): 0 mm Second Greatest Dimension of Primary Tumor Bed Area (Millimeters): 0 mm Percentage of Overall Cancer Cellularity: 0 % Percentage of Cancer that is in situ Disease: 100 % Lymph Nodes: Number of Positive Lymph Nodes: 0 Diameter of Largest [place] Metastasis (Millimeters): 0 mm RCB Calculations: Residual Cancer [place]: 0 Residual Cancer [place] Class: RCB-0 (pCR) MARGINS Margin Status for DCIS: All margins negative for DCIS Distance from DCIS to Closest Margin: Greater than: 10 mm Closest Margin(s) to DCIS: From all margins REGIONAL LYMPH NODES Regional Lymph Node Status: : All regional lymph nodes negative for tumor Total Number of Lymph Nodes Examined (sentinel and non-sentinel): 5 Number of [place] Nodes Examined: 4 pTNM CLASSIFICATION (AJCC 8th Edition) Modified Classification: y pT Category: pTis (DCIS) pN Category: pN0 Genetic Testing and Tumor Genotyping INVITAE 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 Also identified VUS in BARD1 c.632T>C (p.[id number]). 12/24/2023 Other Medical Oncology recommended 1 year of Herceptin/Perjeta for HER2+ status 01/09/2024 - Radiation Therapy Radiation Therapy Treatment Details (Noted on 12/28/2023) Site: Right Chest wall Technique: No technique specified Goal: Curative Planned Treatment Start Date: 01/09/2024 INTERVAL HISTORY The patient reports she is recovering well from her surgery, but she has persistent right arm and axillary pain that has been present for the last 3 weeks. This can be as severe as 7/10 and is worse with movement. She is taking gabapentin 300 mg 3 times daily with some benefit. 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 Her fatigue following surgery is slowly improving. She denies any arm swelling. She is planning for manager audit placementon February 07, [address] Graf. She has been a long-time smoker of 1-1-1/2 packs per day for 30years but she recently quit while on Chantix. She is not taking nicotine replacement. She does havea strong family history of breast cancer with a paternal aunt had breast cancer, a sister who was diagnosed with breast cancer in her 50s in his now survivor at age 74 and a paternal first cousin with breast cancer. She denies a history of prior radiation therapy, connective tissue disorders, or inflammatory bowel disease. Her ECOG performance status is 1. REVIEW OF SYSTEMS Review of systems was negative except as documented above. PATIENT REPORTED SYMPTOM SCREEN FATIGUE (Scale: 0 = no fatigue; 10 = worst fatigue you can imagine): 1 PAIN (Scale: 0 = no pain; 10 = worst pain you can imagine): 7 OVERALL QUALITY OF LIFE (Scale: 0 = as bad as can be; 10 = as good as can be): 5 PAST MEDICAL HISTORY Past Medical History: Diagnosis Date Chronic Pain Syndrome Depression Anxiety Hypertension Essential Primary Insomnia Osteopenia Tobacco Use PAST SURGICAL HISTORY Past Surgical History: Procedure Laterality Date MASTECTOMY COMPLETE / SIMPLE W/ SENTINEL NODE BIOPSY Bilateral 12/11/2023 right axillary sentinal lymph nodes TUBAL LIGATION SOCIAL HISTORY Social History Socioeconomic History Marital status: Single Tobacco Use Smoking status: Every Day Types: E-cigarettes, Cigarettes Smokeless tobacco: Never Social Determinants of Health Food Insecurity: No Food Insecurity (01/29/2023) [facility] In[facility] Worried About Running Out of Food in the Last Year: 1 Transportation Needs: No Transportation Needs (01/29/2023) [facility] Transportation Needs Lack of Transportation (Medical): 1 Housing Stability: Low Risk (01/29/2023) Received from [facility], [facility] Housing Stability Unable to Pay for Housing in the Last Year: 1 FAMILY HISTORY Family History Problem Relation Name Age of Onset Breast cancer Sister Bladder cancer Sister Breast cancer Aunt Colon cancer Aunt OBJECTIVE BP 119/60 (BP Location: Left arm, Patient Position: Sitting, Cuff Size: Regular) Pulse 90 Temp 36.8 ??C (Temporal) Wt 70.8 kg PHYSICAL EXAM General: Patient is awake, alert, and oriented to person, place, and time. No apparent distress. She is here today by herself. Exam was chaperoned by JES Staples. ENT: Pupils equal, round, and reactive to light. Sclera anicteric. Oral cavity inspection reveals moist mucous membranes and no visible lesions. Neck: Supple. Lymph: No palpable cervical, supraclavicular, infraclavicular, or axillary adenopathy. Spine: There is no tenderness to palpation of the spine. Lungs: Clear to auscultation bilaterally. Heart: Regular rate and rhythm. Normal S1 and S2. No murmurs. Abdomen: Soft, non-tender, non-distended. Normal active bowel sounds are present. Extremities: No clubbing, cyanosis, or edema. Breasts: Surgically absent bilaterally. Examined in the sitting and supine positions. There are well-healing surgical incisional scars with some mild seroma palpable bilaterally but no palpable nodules. Nothing worrisome for recurrence. DIAGNOSTICS I reviewed the patient's imaging and pathology reports. ASSESSMENT / PLAN #1 Stage IIIA (cT3, cN1, cM0, G3, ER-, NH-, HER2+) invasive ductal carcinoma of the upper-outer quadrant of the right breast #2 Completion of 6 cycles of TCHP from July 19, 2023 through November 01, 2023 under the care of Dr. Fernandez and Ms. Lee #3 Bilateral mastectomies with right axillary sentinel lymph node biopsy on December 11, 2023 with residual noninvasive disease, ypTis (DCIS), pN0, cM0 #4 Nicotine dependence with recent cessation #5 Planned first-stage reconstruction on January 30, [address] Graf I had a detailed discussion with the patient regarding the risks, benefits, and alternatives of radiotherapy in this setting. I reviewed the NCCN guidelines in formulating my recommendations. I went over these with the patient. She has had an excellent but incomplete response to neoadjuvant chemotherapy and HER2 directed therapy. We reviewed the recent results of the NSABP B-51 trial. Several factors lead me to recommend adjuvant radiotherapy for this patient including the fact that she had at least 5 lymph nodes that were positive on initial imaging, she had only a sentinel lymph node biopsyand not an axillary dissection (which was appropriate), she had grade 3 disease, estrogen and proges terone receptor negative disease, and she did not have a complete pathologic response in her breast. We discussed standard fractionated chest wall and regional lymph node radiotherapy to a dose of 5000 cGy in 25 fractions. We also discussed the possibility of hypofractionated radiotherapy treating the whole breast to a dose of 4256 cGy in 16 fractions. I recommend treatment to the right chest wall to either of the above dose fractionation schedules. I congratulated the patient on her smoking cessation. She declined any nicotine replacement. I discussed the logistics as well as the acute and chronic side effects of treatment in detail. Theacute side effects are common and include breast erythema, swelling, discomfort, and possible peeling of the skin, mild sore throat/pain with swallowing near the end of treatment, and fatigue. Long-term side effects could include skin changes and texture changes of the breast, possible breast asymmetry, a very small risk of radiation pneumonitis (1%), pulmonary scarring (typically of no clinical significance), increased risk of rib fracture with significant trauma, lymphedema (12-31% risk), accelerated coronary artery disease (minimized with a breath hold technique), hypothyroidism (30-50% risk), a very small risk of brachial plexopathy (<1%), and a very small risk of secondary malignancy (less than 0.2%). I recommend utilization of Mepitel film over her reconstructed right chest wall during treatment. We will also utilize mometasone cream over her right supraclavicular region. Both of these will minimize the severity of her radiation skin reaction. The patient is not scheduled for first-stage reconstruction until January 30, 2024. This leaves us ashort window for manager audit filling. I typically start radiotherapy within 12 weeks of mastectomy foroptimal benefit. Thus, she will need to return to us by mid-February with her right manager audit fullyinflated in her left manager audit fully deflated for a simulation so that we can begin treatment on or around Monday, March 04, 2024.. We will schedule a phone follow-up in late January to check on her progress in this regard. After this discussion, I provided the patient with a written summary of my recommendations. Her questions were answered to her verbalized satisfaction. The patient verbally stated that she would liketo proceed with treatment. My thanks to Mss. Garibay and Jared Kuhn, [employer] cooper for the opportunity to participate in this patient's care. EDUCATION Ready to learn, no apparent learning barriers were identified; learning preferences include listening. Explained diagnosis and treatment plan; patient expressed understanding of the content. CONSENT Discussed the risks, benefits, alternatives, and the necessity of other members of the healthcare team participating in the procedure. All questions answered and consent given. I have spent 60 minutes caring for this patient including both dshe-vz-kevs and fgq-jtuk-ev-face time. Signed by: Daniel Zuniga M.D. 01/18/2024 10:50 AM CDT Radiation Oncology [facility] [address] [place] [address] documented in this encounter Miscellaneous Notes * Addendum Note - Michelle Ashby, C.N.A. - 01/02/2024 1:30 PM CDTEncounter addended by: Michelle Ashby C.N.A. on: 01/21/2024 7:03 AM Actions taken: Letter saved documented in this encounter Plan of Treatment Scheduled Referrals Name Type Priority Associated Diagnoses Orde r Schedule Radiation Oncology office visit (clinic) Outpatient Referral Routine Expected: 02/07/2024 (Approximate), Expires: 01/17/2025 documented as of this encounter Visit Diagnoses Diagnosis Malignant Neoplasm Of Breast Upper Outer Quadrant Female Right (HCC)- Primary documented in this encounter
--- OUTSIDE RECORDS SUMMARY | 2024-01-25 12:45 | XMS_ITS | Encounter Summary ---
Author Organization [facility] Address [address] [place] [address] Care Team Providers Care Rn Office Name Role Phone Unavailable Primary Care Provider Unavailabl e Reason for Referral * Specialty Diagnoses / Procedures Referred By Contac t Referred To Contact Sondra Jenkins APRN, C.N.P., D.N.P. [address] [place] [address] [facility] Referral ID Status Reason Start Date Expiration Date Visits Re quested Visits Authorized Scheduling Instructions Please do not schedule if patient has 10 fractions or less, unless requested by care team. * Radiation Therapy (Routine) - Authorized Specialty Diagnoses / Procedures Referred By Contac t Referred To Contact Diagnoses Malignant Neoplasm Of Breast Upper Outer Quadrant Female Right (HCC) Procedures Management Visit Daniel Zuniga M.D. [address] [place] [address] [facility] Referral ID Status Reason Start Date Expiration Date V isits Requested Visits Authorized [id number] Authorized 12/28/2023 12/27/2024 10 10 * Radiation Therapy (Routine) - Authorized Specialty Diagnoses / Procedures Referred By Contac t Referred To Contact Diagnoses Malignant Neoplasm Of Breast Upper Outer Quadrant Female Right (HCC) Procedures Initial Rad Onc Treatment Planning CT Simulation without IV Contrast Daniel Zuniga M.D. [address] [place] [address] [facility] Referral ID Status Reason Start Date Expiration Date V isits Requested Visits Authorized [id number] Authorized 12/28/2023 12/27/2024 1 1 * Radiation Therapy (Routine) - Authorized Specialty Diagnoses / Procedures Referred By Contherman t Referred To Contact Diagnoses Malignant Neoplasm Of Breast Upper Outer Quadrant Female Right (HCC) Procedures Prior Auth Rad Tx AR RADTN TX DEL >=1 MEV COMPLEX AR GUIDANCE FOR LOC RAD TX AR 3D RAD THER ISODOSE FIELD PLAN 3D Daniel Zuniga M.D. [address] [place] [address] [facility] Rad[facility] On[facility] at [place] [address] [place] [phone] Referral ID Status Reason Start Date Expiration Date V isits Requested Visits Authorized [id number] Authorized 01/09/2024 06/10/2024 15 15 Encounter Details Date Type Department Care Team (Late st Contact Info) Description 12/28/2023 Orders Only Department of Radiation Oncology in [place], [place] [address] [place] [phone] Sondra Jenkins APRN, C.N.P., D.N.P. [address] [place] [phone] Malignant Neoplasm Of Breast Upper Outer Quadrant [...] on file documented as of this encounter Plan of Treatment Scheduled Orders Name Type Priority Associated Diagnoses Order Schedule Prior Auth Rad Tx Radiation Oncology Routine Malignant Neoplasm Of Breast Upper Outer Quadrant Female Right (HCC) Ordered: 12/28/2023 Management Visit Radiation Oncology Routine Malignant Neoplasm Of Breast Upper Outer Quadrant Female Right (HCC) 10 Occurrences starting 12/28/2023 until 03/29/2025 Scheduled Referrals Name Type Priority Associated Diagnoses Orde r Schedule Radiation Oncology - Nurse education visit (clinic) Outpatient Referral Routine Malignant Neoplasm Of Breast Upper Outer Quadrant Female Right (HCC) Expected: 12/28/2023, Expires: 03/29/2025 documented as of this encounter Visit Diagnoses Diagnosis Malignant Neoplasm Of Breast Upper Outer Quadrant Female Right (HCC)- Primary documented in this encounter
--- OUTSIDE RECORDS SUMMARY | 2024-01-25 12:45 | XMS_ITS ---
Author Organization [facility] Address [address] [place] [address] Care Team Providers Care Refractory Tile Helper Name Role Phone Unavailable Unavailable Unavailable Surgery Details Not on file Complications Check Surgery Details section. Procedure Estimated Blood Loss Check Surgery Details section. Procedure Findings Check Surgery Details section. Procedure Specimens Taken Check Surgery Details section.
--- OUTSIDE RECORDS SUMMARY | 2024-01-25 12:45 | XMS_ITS | Referral Summary ---
Author Organization [facility] Address [address] [place] [address] Care Team Providers Care Tie Fastener Name Role Phone Unavailable Primary Care Provider Unavailabl e Source Comments Patient records contain information from all sites at [facility]. For routine questions regarding patient records, call [phone] during business hours, M-F 8:00 AM - 5:00 PM Central Time. Record requests for emergency care only can be directed to [phone] at any time.[facility] Encounters Date Type Department Care Team Description 01/23/2024 Clinical Communication Department of Radiation Oncology in [address] [id number] Daniel Zuniga M.D. 01/02/2024 1:19 PM CDT - 01/18/2024 10:53 AM CDT Hospital Encounter Department of Radiation Oncology in [address] [id number] Daniel Zuniga M.D. Malignant Neoplasm Of Breast Upper Outer Quadrant Female Right (HCC) (Primary Dx) 12/28/2023 Orders Only Department of Radiation Oncology in [address] [id number] Sondra Jenkins APRN, C.N.P., D.N.P. Malignant Neoplasm Of Breast Upper Outer Quadrant Female Right (HCC) (Primary Dx) from Last 3 Months Allergies Active Allergy Reactions Criticality Noted Date [...] from 08/02/2023:Stage IIIA(cT3, cN1, cM0, G3, ER-, ND-, HER2+) - Signed by Alicia Fernandez M.D. 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 Narrative [facility] - 12/25/2023 9:35 AM CDT This order has been created and auto-finalized to support the import of outside images. If available, original interpretation can be found on the Media Tab in Chart Review, in Document Viewer, as an image in QREADS or as an Addendum. If a re-interpretation or overread is required please follow defined workflow.?? Provider Not In System IMG BI PROCEDURES [facility] NA * US wire loc soft tissue 1st-Outside US (12/11/2023 8:05 AM CDT) Narrative [facility] - 12/25/2023 9:35 AM CDT This order has been created and auto-finalized to support the import of outside images. If available, original interpretation can be found on the Media Tab in Chart Review, in Document Viewer, as an image in QREADS or as an Addendum. If a re-interpretation or overread is required please follow defined workflow.?? Provider Not In System IMG US PROCEDURES [facility] NA from Last 3 Months
== END 2024-01-25 12:43 | disposition home or self-care (01) ==
LOC: RAD 12:43
PROVIDERS: PCP Family Medicine; Visit Provider Physician Assistant
DX: C50.912 Malignant neoplasm of unspecified site of left female breast (principal); I35.1 Nonrheumatic aortic (valve) insufficiency; I34.0 Nonrheumatic mitral (valve) insufficiency; Z51.81 Encounter for therapeutic drug level monitoring; Z79.899 Other long term (current) drug therapy
CPT/HCPCS: 36591; 80053; 85025; 93306; 96411; 96413; 96417; G0463; J1642; J7050; J9306; Q5114

== ENCOUNTER 2024-05-26 12:31 | Outpatient (CLI) | payer BC, SELFPAY | END 2024-05-26 12:32 | disposition home or self-care (01) | LOC: RAD 12:32 | PROVIDERS: PCP Family Medicine; Visit Provider Physician Assistant | DX: C50.912 Malignant neoplasm of unspecified site of left female breast (principal); I35.1 Nonrheumatic aortic (valve) insufficiency; I34.0 Nonrheumatic mitral (valve) insufficiency; Z51.81 Encounter for therapeutic drug level monitoring; Z79.899 Other long term (current) drug therapy | CPT/HCPCS: 93306 ==

== ENCOUNTER 2024-06-30 09:51 | Outpatient (CLI) | payer BC, SELFPAY | END 2024-06-30 09:52 | disposition home or self-care (01) | LOC: RAD 09:52 | PROVIDERS: PCP Family Medicine; Visit Provider Physician Assistant | DX: C50.912 Malignant neoplasm of unspecified site of left female breast (principal); I51.7 Cardiomegaly; I34.0 Nonrheumatic mitral (valve) insufficiency | CPT/HCPCS: 93306 ==

== ENCOUNTER 2024-07-28 15:30 | Outpatient (RCR) | payer BC, SELFPAY ==
[2024-02-12 09:10] LABS: Basophils Absolute Auto 0.08 K/uL (0.00-0.30); Basophils Percent Auto 0.9 % (0.0-3.0); Hematocrit 33.8 % (33.0-51.0); Hemoglobin* 11.1 gm/dL (12.0-16.0); Immature Granulocytes Abs Auto 0.02 K/uL (0.00-0.30); Immature Granulocytes Pct Auto 0.2 %; Lymphocytes Absolute Auto 2.97 K/uL (0.90-2.90); Lymphocytes Percent Auto 34.5 % (20-44); Mean Corpuscular HGB Conc 33 gm/dL (32-36); Mean Corpuscular Hemoglobin 33 pg (26-34); Mean Corpuscular Volume 102 fL (80-100); Monocytes Percent Auto 11.7 % (0.0-11.0); Neutrophils Absolute Auto 3.85 K/uL (1.7-7.0); Neutrophils Percent Auto 44.7 % (42.0-72.0); Platelet Count* 503 K/uL (140-440); RDW Coefficient of Variation % 12.6 % (11.5-15.5); Red Blood Count 3.33 m/uL (4.00-5.20); White Blood Count* 8.62 K/uL (4.50-11.00)
[2024-02-12 09:23] LABS: Chloride* 106 mmol/L (96-114)
[2024-02-12 09:24] LABS: Albumin* 4.6 g/dL (3.3-5.0); Potassium* 3.4 mmol/L (3.6-5.1); Sodium* 138 mmol/L (135-149)
[2024-02-12 09:25] LABS: Slide Review Reflex No
[2024-02-12 09:27] LABS: Alanine Aminotransferase* 26 U/L (4-35); Alkaline Phosphatase* 84 U/L (40-150); Anion Gap 9 mEq/L (7-15); Aspartate Amino Transferase* 27 U/L (12-35); Bilirubin Total* 0.2 mg/dL (0.1-1.5); Blood Urea Nitrogen* 17 mg/dL (7-30); Carbon Dioxide* 23 mmol/L (20-32); Creatinine* 0.6 mg/dL (0.5-1.5); Estimated Glomerular Filt Rate 100 ml/min; Glucose* 120 mg/dL (60-115); Total Protein* 7.2 g/dL (6.0-8.3)
[2024-02-12 09:28] LABS: Calcium* 9.8 mg/dL (8.4-10.6)
[2024-02-12 10:01] VITALS: BP 126/81; PULSE 79; RESP 16; TEMP 36.6; O2SAT 99
[2024-02-12] MEDS: PERTUZUMAB 420 MG, TUBING SECONDARY 1 EACH in 0.9 % SODIUM CHLORIDE 250 ml 250 ML 528 MG IV (10:39)
[2024-02-12] MEDS: HEPARIN 500 UNIT/5 ML SYRINGE IVF (11:56)
[2024-02-12] MEDS: 0.9 % SODIUM CHLORIDE 250 ml IV (11:56)
[2024-02-12] MEDS: SODIUM CHLORIDE 0.9 % (FLUSH) 10 ML SYRINGE IVF (11:56)
--- NOTE | 2024-02-12 13:52 | ONC.NURNOTE ---
Pt here for prateek/dontae. VSS. Pt had bilat breast reconstruction on 01/30/24. Pt still has YANET drains in place with plans to have those removed on 02/14/[address] Coleman. Discussed plan of care with Mary Grace Lockhart APRN, okay to proceed with treatment today as long as patient feels okay and has no concerns. Pt verbalized understandinf of plan of care and would like to be treated today.
[2024-03-03 10:35] LABS: Basophils Absolute Auto 0.04 K/uL (0.00-0.30); Basophils Percent Auto 0.6 % (0.0-3.0); Eosinophils Absolute Auto 0.33 K/uL (0.00-0.50); Hematocrit 37.1 % (33.0-51.0); Hemoglobin* 12.1 gm/dL (12.0-16.0); Immature Granulocytes Abs Auto 0.05 K/uL (0.00-0.30); Immature Granulocytes Pct Auto 0.8 %; Lymphocytes Percent Auto 28.7 % (20-44); Mean Corpuscular HGB Conc 33 gm/dL (32-36); Mean Corpuscular Hemoglobin 33 pg (26-34); Mean Corpuscular Volume 102 fL (80-100); Monocytes Percent Auto 10.7 % (0.0-11.0); Neutrophils Percent Auto 54.2 % (42.0-72.0); Platelet Count* 299 K/uL (140-440); RDW Coefficient of Variation % 13.8 % (11.5-15.5); Red Blood Count 3.65 m/uL (4.00-5.20); White Blood Count* 6.63 K/uL (4.50-11.00)
[2024-03-03 10:37] LABS: Slide Review Reflex No
[2024-03-03 10:45] LABS: Chloride* 105 mmol/L (96-114)
[2024-03-03 10:46] LABS: Albumin* 4.7 g/dL (3.3-5.0); Potassium* 3.7 mmol/L (3.6-5.1); Sodium* 137 mmol/L (135-149)
[2024-03-03 10:48] LABS: Anion Gap 8 mEq/L (7-15); Aspartate Amino Transferase* 32 U/L (12-35); Bilirubin Total* 0.2 mg/dL (0.1-1.5); Carbon Dioxide* 24 mmol/L (20-32); Creatinine* 0.6 mg/dL (0.5-1.5); Est. Creatinine Clearance* 53.21; Estimated Glomerular Filt Rate 100 ml/min
[2024-03-03 10:49] LABS: Alanine Aminotransferase* 23 U/L (4-35); Alkaline Phosphatase* 89 U/L (40-150); Blood Urea Nitrogen* 25 mg/dL (7-30); Calcium* 9.8 mg/dL (8.4-10.6); Glucose* 164 mg/dL (60-115); Total Protein* 7.3 g/dL (6.0-8.3)
[2024-03-03] MEDS: 0.9 % SODIUM CHLORIDE 250 ml IV (11:21)
[2024-03-03] MEDS: PERTUZUMAB 420 MG, TUBING SECONDARY 1 EACH in 0.9 % SODIUM CHLORIDE 250 ml 250 ML 528 MG IV (12:00)
[2024-03-03] MEDS: SODIUM CHLORIDE 0.9 % (FLUSH) 10 ML SYRINGE IVF (13:10)
[2024-03-03] MEDS: HEPARIN 500 UNIT/5 ML SYRINGE IVF (13:10)
[2024-03-24 09:08] LABS: Basophils Absolute Auto 0.06 K/uL (0.00-0.30); Basophils Percent Auto 0.8 % (0.0-3.0); Eosinophils Absolute Auto 0.25 K/uL (0.00-0.50); Eosinophils Percent Auto 3.5 % (0.0-7.0); Hemoglobin* 12.8 gm/dL (12.0-16.0); Immature Granulocytes Abs Auto 0.01 K/uL (0.00-0.30); Immature Granulocytes Pct Auto 0.1 %; Lymphocytes Absolute Auto 2.28 K/uL (0.90-2.90); Lymphocytes Percent Auto 32.3 % (20-44); Mean Corpuscular HGB Conc 33 gm/dL (32-36); Mean Corpuscular Hemoglobin 33 pg (26-34); Mean Corpuscular Volume 101 fL (80-100); Monocytes Percent Auto 12.9 % (0.0-11.0); Neutrophils Absolute Auto 3.55 K/uL (1.7-7.0); Neutrophils Percent Auto 50.4 % (42.0-72.0); Platelet Count* 340 K/uL (140-440); RDW Coefficient of Variation % 13.5 % (11.5-15.5); Red Blood Count 3.86 m/uL (4.00-5.20); White Blood Count* 7.06 K/uL (4.50-11.00)
[2024-03-24 09:09] LABS: Slide Review Reflex No
[2024-03-24 09:25] LABS: Albumin* 4.8 g/dL (3.3-5.0); Chloride* 102 mmol/L (96-114); Potassium* 3.9 mmol/L (3.6-5.1); Sodium* 135 mmol/L (135-149)
[2024-03-24 09:28] LABS: Alanine Aminotransferase* 24 U/L (4-35); Alkaline Phosphatase* 79 U/L (40-150); Anion Gap 10 mEq/L (7-15); Aspartate Amino Transferase* 34 U/L (12-35); Bilirubin Total* 0.4 mg/dL (0.1-1.5); Blood Urea Nitrogen* 22 mg/dL (7-30); Carbon Dioxide* 23 mmol/L (20-32); Creatinine* 0.7 mg/dL (0.5-1.5); Est. Creatinine Clearance* 53.21; Estimated Glomerular Filt Rate 97 ml/min; Glucose* 113 mg/dL (60-115); Total Protein* 7.4 g/dL (6.0-8.3)
[2024-03-24] MEDS: PERTUZUMAB 420 MG, TUBING SECONDARY 1 EACH in 0.9 % SODIUM CHLORIDE 250 ml 250 ML 528 MG IV (10:28)
[2024-03-24] MEDS: 0.9 % SODIUM CHLORIDE 250 ml IV (10:30)
[2024-03-24] MEDS: SODIUM CHLORIDE 0.9 % (FLUSH) 10 ML SYRINGE IVF (11:40)
[2024-03-24] MEDS: HEPARIN 500 UNIT/5 ML SYRINGE IVF (11:40)
[2024-04-14 13:01] LABS: Basophils Absolute Auto 0.05 K/uL (0.00-0.30); Basophils Percent Auto 0.7 % (0.0-3.0); Eosinophils Absolute Auto 0.17 K/uL (0.00-0.50); Eosinophils Percent Auto 2.4 % (0.0-7.0); Hemoglobin* 12.3 gm/dL (12.0-16.0); Immature Granulocytes Abs Auto 0.01 K/uL (0.00-0.30); Immature Granulocytes Pct Auto 0.1 %; Lymphocytes Absolute Auto 2.16 K/uL (0.90-2.90); Mean Corpuscular HGB Conc 33 gm/dL (32-36); Mean Corpuscular Hemoglobin 34 pg (26-34); Mean Corpuscular Volume 101 fL (80-100); Monocytes Percent Auto 13.5 % (0.0-11.0); Neutrophils Absolute Auto 3.63 K/uL (1.7-7.0); Neutrophils Percent Auto 52.3 % (42.0-72.0); Platelet Count* 293 K/uL (140-440); RDW Coefficient of Variation % 13.4 % (11.5-15.5); Red Blood Count 3.65 m/uL (4.00-5.20); White Blood Count* 6.96 K/uL (4.50-11.00)
[2024-04-14 13:02] LABS: Slide Review Reflex No
[2024-04-14 13:13] VITALS: BP 142/91; PULSE 87; RESP 16; TEMP 36.9; O2SAT 96
[2024-04-14 13:15] LABS: Albumin* 4.3 g/dL (3.3-5.0); Chloride* 106 mmol/L (96-114); Potassium* 3.7 mmol/L (3.6-5.1); Sodium* 135 mmol/L (135-149)
[2024-04-14 13:17] LABS: Creatinine* 0.6 mg/dL (0.5-1.5); Est. Creatinine Clearance* 53.21; Estimated Glomerular Filt Rate 100 ml/min
[2024-04-14 13:18] LABS: Alanine Aminotransferase* 20 U/L (4-35); Alkaline Phosphatase* 77 U/L (40-150); Anion Gap 4 mEq/L (7-15); Aspartate Amino Transferase* 28 U/L (12-35); Bilirubin Total* 0.3 mg/dL (0.1-1.5); Blood Urea Nitrogen* 21 mg/dL (7-30); Calcium* 9.5 mg/dL (8.4-10.6); Carbon Dioxide* 25 mmol/L (20-32); Glucose* 99 mg/dL (60-115); Total Protein* 6.6 g/dL (6.0-8.3)
[2024-04-14] MEDS: PERTUZUMAB 420 MG, TUBING SECONDARY 1 EACH in 0.9 % SODIUM CHLORIDE 250 ml 250 ML 528 MG IV (14:20)
[2024-04-14] MEDS: HEPARIN 500 UNIT/5 ML SYRINGE IVF (15:38)
[2024-04-14] MEDS: 0.9 % SODIUM CHLORIDE 250 ml IV (15:38)
--- NOTE | 2024-05-06 14:28 | ONC.NURNOTE ---
Patient called yesterday stating that she is not feeling well and asked that her appointments be moved out one week.
[2024-05-12 10:44] LABS: Basophils Absolute Auto 0.05 K/uL (0.00-0.30); Basophils Percent Auto 0.8 % (0.0-3.0); Eosinophils Absolute Auto 0.21 K/uL (0.00-0.50); Eosinophils Percent Auto 3.5 % (0.0-7.0); Hematocrit 39.3 % (33.0-51.0); Immature Granulocytes Abs Auto 0.01 K/uL (0.00-0.30); Immature Granulocytes Pct Auto 0.2 %; Lymphocytes Absolute Auto 2.04 K/uL (0.90-2.90); Lymphocytes Percent Auto 33.6 % (20-44); Mean Corpuscular HGB Conc 33 gm/dL (32-36); Mean Corpuscular Hemoglobin 34 pg (26-34); Mean Corpuscular Volume 102 fL (80-100); Monocytes Percent Auto 13.5 % (0.0-11.0); Neutrophils Absolute Auto 2.94 K/uL (1.7-7.0); Neutrophils Percent Auto 48.4 % (42.0-72.0); Platelet Count* 285 K/uL (140-440); RDW Coefficient of Variation % 12.4 % (11.5-15.5); Red Blood Count 3.86 m/uL (4.00-5.20); White Blood Count* 6.07 K/uL (4.50-11.00)
[2024-05-12 10:46] LABS: Slide Review Reflex No
[2024-05-12 11:04] LABS: Albumin* 4.4 g/dL (3.3-5.0); Chloride* 107 mmol/L (96-114); Potassium* 3.9 mmol/L (3.6-5.1); Sodium* 136 mmol/L (135-149)
[2024-05-12 11:06] LABS: Bilirubin Total* 0.3 mg/dL (0.1-1.5); Creatinine* 0.6 mg/dL (0.5-1.5); Est. Creatinine Clearance* 53.21; Estimated Glomerular Filt Rate 100 ml/min
[2024-05-12 11:07] LABS: Alanine Aminotransferase* 25 U/L (4-35); Alkaline Phosphatase* 87 U/L (40-150); Anion Gap 6 mEq/L (7-15); Aspartate Amino Transferase* 27 U/L (12-35); Blood Urea Nitrogen* 26 mg/dL (7-30); Calcium* 9.7 mg/dL (8.4-10.6); Carbon Dioxide* 23 mmol/L (20-32); Glucose* 100 mg/dL (60-115); Total Protein* 7.1 g/dL (6.0-8.3)
[2024-05-12 11:39] VITALS: BP 140/88
[2024-05-12] MEDS: PERTUZUMAB 420 MG, TUBING SECONDARY 1 EACH in 0.9 % SODIUM CHLORIDE 250 ml 250 ML 528 MG IV (12:26)
[2024-05-12] MEDS: HEPARIN 500 UNIT/5 ML SYRINGE IVF (14:08)
[2024-05-12] MEDS: SODIUM CHLORIDE 0.9 % (FLUSH) 10 ML SYRINGE IVF (14:08)
--- NOTE | 2024-05-27 15:37 | ONC.NURNOTE ---
Call from patient to discuss concerns about her breast expanders. Patient states that she saw Dr. Graf last week and both of her expanders had flipped. She reports being very uncomfortable and wants to have the exchange surgery JORGE. She also notes that Dr. Graf felt a mass in her left breast and she is quite nervous about this as well. Lynne states that Dr. Graf does not want to operate until she is done with her chemotherapy. I placed a call to [facility] and spoke with Dr. Graf's nurse. I explained that Lynne is on her maintenance Herceptin/Perjeta and we likely could get approval from oncology if this was the hold up for surgery. Dr. Graf's nurse assured me that they are discussing Lynne's case with Dr. Coleman and will reach out to the patient soon with a plan. Patient informed of the same.
--- NOTE | 2024-06-02 11:37 | ONC.NURNOTE ---
Hold treatment today, per Rona Lee PA-C, d/t decreased Ejection Fraction on recent heart echo. Repeat echo in 1 mo. Reviewed with pt. She reviews situation with expanders issues, is waiting to hear from Dr. Graf's team for next steps/surgery timing. Reviewed with BNN; see recent note. She will f/u with pt.
--- NOTE | 2024-07-02 13:18 | ONC.NURNOTE ---
Spoke with patient regarding her recent ECHO results and need for cardio-oncology referral. At this time, patient states she feels mostly good. Denies swelling, shortness of breath or fatigue. She is most concerned about how this will impact her upcoming reconstruction surgery. I assured her that I had spoken with Dr. Graf and he is aware of these new findings. He will await cardiology clearance prior to proceeding. Patient scheduled to see Rona Lee on 07/07 and [facility] will call her to schedule the cardio-oncology consult. Patient verbalizes understanding of plan.
--- NOTE | 2024-07-03 15:04 | ONC.NURNOTE ---
Confirmed with patient that she is seeing Cardio-Oncology at [facility] on 07/07. Appointment with Rona Lee has been cancelled. We will determine follow up needs after her [facility] consult. Patient verbalizes understanding.
--- NOTE | 2024-07-07 12:20 | ONC.NURNOTE ---
I received a call from the patient today. She was in tears and explained that she was on her way to her cardio-oncology appointment in [place] and she was having a panic attack. She was pulled over on the side of the road and states I don't know why I thought I could do this. She shares that driving gives her a lot of anxiety and the traffic was heavier and traveling faster than she expected. I helped the patient calm down with deep breathing. Patient reassured me that she could safely get herself back home. I spoke with the [facility] team ([phone]) on Lynne's behalf, they will call her to reschedule. Lynne plans to ask her brother to transport her to this appointment.
--- NOTE | 2024-07-11 13:54 | ONC.NURNOTE ---
Patient left a message for N requesting we cancel her 07/14 appointment with Rona Lee. She was able to get her cardio-oncology appointment at [facility] scheduled for 07/14.
--- NOTE | 2024-07-28 10:52 | ONC.NURNOTE ---
Patient notified [facility] that she tested positive for COVID last . We offered her a virtual visit today but patient shared that she was stressed by the idea of figuring out how to make it work on her computer or phone. I offered to reschedule her visit to in person visit next week and she declined. She shares that she is feeling overwhelmed with appointments, health care expenses, fears, etc. [facility] will check in with her the end of the week to assist with rescheduling.
== END 2024-08-10 23:59 | disposition home or self-care (01) ==
LOC: CCIC 15:30
PROVIDERS: Clinical Nurse Specialist; PCP Family Medicine; Referring Provider Family Medicine; Visit Provider Physician Assistant
DX: C50.911 Malignant neoplasm of unspecified site of right female breast (principal); Z17.1 Estrogen receptor negative status [ER-]
CPT/HCPCS: 36415; 36591; 80053; 85025; 96413; 96417; 99215; G0463; J1642; J7050; J9306; Q5114

== ENCOUNTER 2024-08-25 11:41 | Outpatient (CLI) | payer BC, SELFPAY | END 2024-08-25 11:42 | disposition home or self-care (01) | PROVIDERS: PCP Family Medicine; Visit Provider Family Medicine | DX: I10 Essential (primary) hypertension (principal); Z01.818 Encounter for other preprocedural examination | CPT/HCPCS: 80048; 80061; 84460; 85025 ==

== ENCOUNTER 2024-12-01 09:47 | Outpatient (CLI) | payer BC, SELFPAY ==
--- OUTSIDE RECORDS SUMMARY | 2024-12-02 01:25 | XMS_ITS | Referral Summary ---
Author Organization [facility] Address [address] [place] [address] Care Team Providers Care Ed Educational Aide Name Role Phone Cl Pedro MD Primary Care Provider + Allergies Active Allergy Reactions Criticality Noted Date Comments Sulfa (Sulfonamide Antibiotics) Other 08/07/2017 Muscle cramping in legs/arms Medications multivitamins with minerals (ONE A DAY) oral Tab Take 1 tablet by mouth Daily. 01/29/2023 Active sertraline (ZOLOFT) 100 mg oral tablet Take 1 tablet (100 mg) by mouth once daily. 10/25/2023 Active varenicline (CHANTIX;APO-VA RENICLINE) 1 mg oral tablet Take 1 mg by mouth Twice a Day. 12/03/2023 Active acetaminophen (TYLENOL) 500 mg oral tablet Take 2 tablets (1,000 mg) by mouth four times a day. 01/31/2024 Active cyclobenzaprine (FLEXERIL) 10 mg oral tablet Take 1 tablet (10 mg) by mouth three times a day. 30 tablet 01/31/2024 10:48 AM CDT 01/31/2024 Active hydrOXYzine pamoate (VISTARIL) 50 mg oral capsule Take 1 capsule (50 mg) by mouth every 4 (four) hours as needed. 20 capsule 01/31/2024 10:48 AM CDT 01/31/2024 Active oxyCODONE, immediate release, (ROXICODONE) 5 mg oral tabletIndicatio ns:Personal history of breast cancer Take 1-2 tablets (5-10 mg) by mouth every 4 (four) hours as needed. 20 tablet 01/31/2024 10:48 AM CDT 01/31/2024 Active senna-docusate (SENNA-S) 8.6-50 mg oral tablet Take 1-2 tablets by mouth twice a day as needed. 30 tablet 01/31/2024 10:48 AM CDT 01/31/2024 Active cephalexin (KEFLEX) 500 mg oral capsule Take 1 capsule (500 mg) by mouth three times a day. 42 capsule 01/31/2024 10:48 AM CDT 01/31/2024 Active Active Problems Problem Noted Date Diagnosed Date Personal history of breast cancer 01/30/2024 Social History Tobacco Use Types Packs/Day Years Used Date Smoking Tobacco: Former Cigarettes Smokeless Tobacco: Never Tobacco Cessation:Counseling Given: Not Answered Comments:Almost done smoking 01/28/24 Alcohol Use Standard Drinks/Week Comments Yes 0 (1 standard drink = 0.6 oz pur e alcohol) 2 beers here and there Comments No Sex and Gender Information Value Date Recorded Sex Assigned at Not on file Legal Sex Female 3:23 AM CDT Gender Identity Not on file Sexual Orientation Not on file Last Filed Vital Signs Vital Sign Reading Time Taken Comments Blood Pressure 145/90 01/31/2024 5:39 AM CDT Pulse 73 01/31/2024 5:39 AM CDT Temperature 36.9 C (98.5 F) 01/31/2024 5:39 AM CDT Respiratory Rate 16 01/31/2024 5:39 AM CDT Oxygen Saturation 97% 01/31/2024 5:39 AM CDT Inhaled Oxygen Concentration - - Weight 72.6 kg (160 lb) 01/30/2024 1:01 PM CDT Height 167.6 cm (5' 6) 01/30/2024 1:01 PM CDT Body Mass Index 25.82 01/30/2024 1:01 PM CDT Plan of Treatment Not on file Medical Devices Implanted Type 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 Device Identifier Shelf Expiration Date Model / Serial / Lot Mesh Alloderm 16x20 Perf Brstp - [id number] Implanted:Qty: 1 on 01/30/2024 by Edwin Graf MD at [facility] Mesh/patch Left: Chest [employer] 08/08/2025 [id number] / / [id number] Brick Pitcher Tissue Smooth 500cc - [id number] Implanted:Qty: 1 on 01/30/2024 by Edwin Graf MD at [facility] Prosthetic Implant Non-Specific Right: Chest [employer] 01/23/2028 133S-MV-1 4-T / [id number] / Description:240cc of injecta ble saline to fill Brick Pitcher Tissue Smooth 500cc - [id number] Implanted:Qty: 1 on 01/30/2024 by Edwin Graf MD at [facility] Prosthetic Implant Non-Specific Left: Chest [employer] 02/14/2028 133S-MV-1 4-T / [id number] / Description:240cc of injecta ble saline to fill Insurance [address] [place] [id number] [facility] [address] [place] [id number] Advance Directives For more information, please contact: [phone] * Full Code (Latest Code Status on File) Date Activated Date Inactivated Comments 01/30/2024 2:36 PM 01/31/2024 4:56 PM Question Answer Comments How was code status determined? Patient Care Teams Ed Educational Aide Relationship Specialty Start Date End Date Cl Pedro MD [address] [place] [address] PCP - General Family Medicine 01/28/24
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
--- OUTSIDE RECORDS SUMMARY | 2024-12-02 01:25 | XMS_ITS | Clinical Summary ---
Author Organization [facility] Address [address] [place] [address] Care Team Providers Care Supervisor Type Disk Quality Control Name Role Phone Cl Pedro MD Primary [...] 01/30/2024 1:01 PM CDT Plan of Treatment Health Maintenance Due Date Last Done Comments Colonoscopy 1960 Diabetes Screening 1960 Hepatitis C Screening 1959 Lipid Screening 1959 Pap Smear 1959 Anxiety Screening (BRODERICK-2) 12/20/1960 Depression Assessment (PHQ-2) 12/20/1960 Pneumococcal 50+ Years (1 of 1 - PCV) 12/20/2009 Adult Tetanus Booster 07/02/2019 07/02/2009 Zoster Vaccine (2 of 2) 03/26/2023 01/29/2023 COVID-19 Vaccine (2 - 2023-2 5 season) 2024 06/07/2021 Yearly Review of HCD 12/24/2024 12/25/2023 Influenza Vaccine (Season Ended) 2025 07/18/2023, 05/17/2020 RSV Vaccines (1 - 1-dose 75+ series) 12/20/2034 Meningococcal B Vaccine Aged Out No l onger eligible based on patient's age to complete this topic Medical Devices Implanted Type Area Licensed Mental Health Professional Device Identifier Shelf Expiration Date Model / Serial / Lot Mesh Alloderm 16x20 Perf Brstp - [id number] Implanted:Qty: 1 on 01/30/2024 by Edwin Graf MD at [facility] Mesh/patch Left: Chest [employer] 08/08/2025 [id number] / / [id number] Boom Pump Operator Tissue Smooth 500cc - [id number] Implanted:Qty: 1 on 01/30/2024 by Edwin Graf MD at [facility] Prosthetic Implant Non-Specific Right: Chest [employer] 01/23/2028 133S-MV-1 4-T / [id number] / Description:240cc of injecta ble saline to fill Boom Pump Operator Tissue Smooth 500cc - [id number] Implanted:Qty: 1 on 01/30/2024 by Edwin Graf MD at [facility] Prosthetic Implant Non-Specific Left: Chest [employer] 02/14/2028 133S-MV-1 4-T / [id number] / Description:240cc of injecta ble saline to fill Insurance [id number] [place], [place] [id number] BCBS [employer] [id number] [place] [id number] Advance Directives For more information, please contact: [phone] * Full Code (Latest Code Status on File) Date Activated Date Inactivated Comments 01/30/2024 2:36 PM 01/31/2024 4:56 PM Question Answer Comments How was code status determined? Patient Care Teams Supervisor Type Disk Quality Control Relationship Specialty Start Date End Date Cl Pedro MD [address] [place] [address] PCP - General Family Medicine 01/28/24
== END 2024-12-01 09:48 | disposition home or self-care (01) ==
LOC: RAD 09:47
PROVIDERS: PCP Family Medicine; Visit Provider Physician Assistant
DX: Z51.81 Encounter for therapeutic drug level monitoring (principal); Z79.899 Other long term (current) drug therapy
CPT/HCPCS: 93306

== ENCOUNTER 2024-12-04 13:00 | Outpatient (RCR) | payer BC, SELFPAY ==
[2024-08-18] MEDS: HEPARIN 500 UNIT/5 ML SYRINGE IVF (15:23)
[2024-08-18] MEDS: SODIUM CHLORIDE 0.9 % (FLUSH) 10 ML SYRINGE IVF (15:23)
--- NOTE | 2024-08-19 15:41 | ONC.NURNOTE ---
Addendum entered by Josefina Celis 08/21/24 14:12: Patient informed that we reviewed her request with Rona Lee PA-C and she recommends an appointment with PCP to further work up her cough and/or need for antibiotics. Patient states she already has a pre-op appointment scheduled with him for 08/25. Patient shares that she is scheduled to have her expanders removed on 09/12. Patient states Dr. Barillas will also remove the port at that time. Confirmed follow up plan for ECHO and MD appointment in 3 months. Patient encouraged to call with questions or concerns. Original Note: Pt called today noting she's having car trouble; she cancelled her CT tomorrow as she's not comfortable driving outside of town. She updates that she looked at picking up Xyzal per antihistamine recommendations but it was cost prohibitive @ >$20. She is requesting ABX from Rona or asking if she should go to her PCP; PCP is in town and her car can make it there. [place] email sent to Rona Lee PA-C.
[2024-12-01 10:38] LABS: Hematocrit 41.4 % (33.0-51.0); Hemoglobin* 13.7 gm/dL (12.0-16.0); Immature Granulocytes Abs Auto 0.00 K/uL (0.00-0.30); Immature Granulocytes Pct Auto 0.0 %; Lymphocytes Absolute Auto 2.06 K/uL (0.90-2.90); Mean Corpuscular HGB Conc 33 gm/dL (32-36); Mean Corpuscular Hemoglobin 33 pg (26-34); Mean Corpuscular Volume 100 fL (80-100); RDW Coefficient of Variation % 13.0 % (11.5-15.5); Red Blood Count 4.15 m/uL (4.00-5.20); White Blood Count* 6.91 K/uL (4.50-11.00)
[2024-12-01 10:46] LABS: Slide Review Reflex No
[2024-12-01 10:51] LABS: Albumin* 4.8 g/dL (3.3-5.0); Chloride* 102 mmol/L (96-114); Potassium* 3.9 mmol/L (3.6-5.1); Sodium* 135 mmol/L (135-149)
[2024-12-01 10:54] LABS: Alanine Aminotransferase* 18 U/L (4-35); Alkaline Phosphatase* 66 U/L (40-150); Anion Gap 5 mEq/L (7-15); Aspartate Amino Transferase* 28 U/L (12-35); Bilirubin Total* 0.6 mg/dL (0.1-1.5); Blood Urea Nitrogen* 13 mg/dL (7-30); Calcium* 10.4 mg/dL (8.4-10.6); Carbon Dioxide* 28 mmol/L (20-32); Creatinine* 0.6 mg/dL (0.5-1.5); Est. Creatinine Clearance* 53.21; Estimated Glomerular Filt Rate 100 ml/min; Glucose* 104 mg/dL (60-115); Total Protein* 7.8 g/dL (6.0-8.3)
--- NOTE | 2024-12-02 13:12 | W.ED.EKGINT ---
EKG Interpretation EKG Data Attestation: I personally reviewed and interpreted this ECG as follows: EKG interpretation date: 12/02/24 Prior EKG tracings: available for review Interpretation: EKG is reviewed, for the indication of chemotherapeutic treatment. This shows normal sinus rhythm with a ventricular rate of 66, QRS is 92 milliseconds QT is 404 QTC is 423. No acute ST wave changes are noted. When compared to old EKG from July 2024 there is been no real change
== END 2025-02-14 23:59 | disposition home or self-care (01) ==
LOC: CCIC 13:00
PROVIDERS: Physician Assistant; PCP Family Medicine; Referring Provider Family Medicine; Visit Provider Internal Medicine Hematology & Oncology
DX: C50.911 Malignant neoplasm of unspecified site of right female breast (principal); Z17.1 Estrogen receptor negative status [ER-]; Z90.13 Acquired absence of bilateral breasts and nipples; R51.9 Headache, unspecified
CPT/HCPCS: 36415; 80053; 85025; 93005; 93010; 99211; 99215; G0463; J1642

== ENCOUNTER 2024-12-22 11:06 | Outpatient (CLI) | payer MEDICARE, BC, SELFPAY ==
--- NOTE | 2024-12-22 11:00 | CRLHL7_ITS ---
For Patients: As a result of the Century Cures Act, medical imaging exams and procedure reports are released immediately into your electronic medical record. You may view this report before your referring provider. If you have questions, please contact your health care provider. Indication: Chronic sinusitis. Technique: Noncontrast CT of the paranasal sinuses with multiplanar reconstructions. Comparison: None available. Findings: Frontal sinuses: Under developed right frontal sinus. Clear left frontal sinus and recess. Maxillary sinuses: Mild diffuse mucosal thickening. Patent ostiomeatal complexes. Ethmoid sinuses: Mild diffuse mucosal thickening. Sphenoid sinuses: Trace diffuse mucosal thickening. Patent ostia. Nasal cavity: Essentially midline nasal septum. 5 mm leftward projecting septal spur. Other: The imaged intracranial structures appear within normal limits. The nasopharynx is symmetric. Impression: 1. Mild diffuse mucosal thickening throughout the maxillary and ethmoid sinuses. 2. 5 mm leftward projecting septal spur. Please note that all CT scans at this facility use dose modulation, iterative reconstruction, and/or weight-based dosing when appropriate to reduce radiation dose to as low as reasonably achievable. Dictated by Sj Figueroa MD @ 12/22/2024 12:35:48 PM (Electronically Signed)
== END 2024-12-22 11:07 | disposition home or self-care (01) ==
LOC: CT 11:12
PROVIDERS: PCP Family Medicine; Visit Provider Otolaryngology
DX: J32.9 Chronic sinusitis, unspecified (principal); J34.2 Deviated nasal septum
CPT/HCPCS: 70486